=== PATIENT | male | born 1940 | race Caucasian/White ===

== ENCOUNTER 2023-12-10 06:10 | Day surgery (SDC) | payer MEDICARE, OTHER, SELFPAY ==
[2023-12-10] MEDS: LACTATED RINGERS 1000 ML 1,000 ML 100 ML IV (06:30)
[2023-12-10 06:42] VITALS: BP 152/72; PULSE 60; RESP 16; TEMP 36.7; O2SAT 97
[2023-12-10 06:45] VITALS: BMI 30.4
[2023-12-10] MEDS: SODIUM CHLORIDE 0.9 % (FLUSH) 10 ML SYRINGE IVF (07:08)
--- NOTE | 2023-12-10 07:24 | W.PM.H&PU ---
History & Physical Update History & Physical Update H&P Reviewed and patient assessed: No changes noted
--- NOTE | 2023-12-10 07:27 | P.GSOP_ITS ---
Operative Note Date of procedure: 12/10/23 Pre-op diagnosis: 1. Symptomatic right inguinal hernia. Post-op diagnosis: 1. Small direct right inguinal hernia and moderately sized indirect inguinal hernia. Type of Procedure: 1. Open right inguinal hernia repair with mesh. Indications: 83-year-old male was seen in clinic for evaluation of a right inguinal hernia. Patient noticed right groin pain while biking. Patient is very active. The pain initially was intermittent but then became constant when he was seen in clinic. He denies any nausea or vomiting. He was seen in urgent care for evaluation of this pain and had a CT scan in September of 2023. 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 On clinical exam with the patient standing up there was a right inguinal bulge noted. This was reducible. Given patient's clinical history and his physical exam, an open right inguinal hernia repair was recommended. The procedure was discussed in detail. The risks associated procedure including infection, bleeding, injury to into preperitoneal organs, nerve pain, and other complications were all discussed with the patient, he agreed to proceed. Procedure Description: After discussing the risks and benefits of the procedure, the patient signed informed consent.? The operative site was marked and the patient was brought to the operating room and placed on the operating table in supine position.? Care was taken to pad the patient's pressure points.?? The patient was then sedated by anesthesia.?? The operative site was then prepped and draped in the usual sterile fashion.? A time-out was then performed. Surgical site was prepped and draped in sterile fashion. Site of the incision was marked with a marking pen and local anesthetic was injected. An oblique incision was made just above and medial to the right inguinal ligament. Sub cutaneous tissue was dissected to external obliques. Superficial subcutaneous vascular branches were clamped, divided and tied with 3-0 Vicryl ties. Small incision was made through the external oblique aponeurosis with scalpel. I then used Metzenbaum scissors to dissect under external obliques and extend my incision. Mosquito clamps were placed on the edges of external oblique exposing the inguinal floor. The right Ilioinguinal nerve was identified and was going through the plain of dissection. The nerve was divided proximally and distally and a 3 cm segment of it was excised. This was not sent to pathology. I then identified the spermatic cord and the hernia sac. I bluntly dissected subcutaneous tissues in order to place [place] drain around the cord structures. Cremasteric fibers were peeled off and dissected off the hernia sac and cord structures. The indirect hernia sac was identified. The hernia sac was from the spermatic cord bluntly and with cautery. There was also evidence of small direct hernia with preperitoneal fat protruding through the hernia opening. The indirect hernia sac was mobilized off the spermatic cord with cautery and bluntly. The indirect hernia sac was incised and examined from the inside. No intraabdominal organs were incarcerated in the hernia sac. A stitch using 2-0 Vicryl was placed near the base of the hernia sac through the sac and the hernia sac tied off. Hernia sac was then excised and not sent to pathology. This was then pushed into preperitoneal space through the internal ring. Surgical field was examined for bleeding and hemostasis was achieved with cautery and Vicryl ties. A Bard mesh onlay was also used for hernia repair. The mesh onlay was sutured in place with interrupted 0-0 Neurolon sutures to the conjoint tendon medially and shelving edge laterally, pubic tubercle inferiorly. Simple interrupted sutures were placed using 0-0 Neurolon at the base of internal inguinal ring making it only large enough to fit a tip of one finger through. Spermatic cord was placed back into scrotum. [place] drain was removed. External oblique aponeurosis was closed with a running 3-0 Vicryl. Additional local anesthetic was injected into subcutaneous tissues. Solange's fascia and subcutaneous tissue was re-approximated with interrupted Vicryl stitches. Skin incision was closed with 4-0 Monocryl subcuticular stitch. Steri strips and sterile dressing were applied over incision. All counts were correct at the end of the case. Patient tolerated this procedure well and was transferred to PACU in stable condition. Sterile dressings were then applied. Findings: Small direct hernia and moderately sized indirect hernia with no intra-abdominal structures incarcerated in hernia sac. Repaired with mesh. Anesthesia: MAC and local Surgeon: Caridad Feldman MD Estimated blood loss (mL): 5 Condition: stable Disposition: same day
[2023-12-10] MEDS: CEFAZOLIN 2 GM INJ IVP (07:37)
[2023-12-10] MEDS: BUPIVACAINE 0.25% 30 ML INJECTION (07:50)
[2023-12-10 08:56] VITALS: BP 120/65; PULSE 60; RESP 16; TEMP 36.3; O2SAT 97
--- NOTE | 2023-12-10 08:58 | P.ANES_ITS ---
Anesthesia Charges Start Date/Time Anesthesia Start Date: 12/10/23 Anesthesia Start Time: 07:27 Stop Date/Time Anesthesia Stop Date: 12/10/23 Anesthesia Stop Time: 08:56 Summary Extremes of Age - Over 70 or under 1: [employer]
[2023-12-10 09:00] VITALS: BP 133/70; PULSE 60; RESP 16; O2SAT 97
[2023-12-10 09:15] VITALS: BP 143/74; PULSE 60; RESP 16; O2SAT 97
[2023-12-10 09:30] VITALS: BP 143/77; PULSE 60; RESP 16; O2SAT 97
[2023-12-10 09:45] VITALS: BP 144/78; PULSE 60; RESP 16; O2SAT 97
--- NOTE | 2023-12-10 11:59 | W.ANESCHARGE ---
Anesthesia Charges Start Date/Time Anesthesia Start Date: 12/10/23 Anesthesia Start Time: 07:27 Stop Date/Time Anesthesia Stop Date: 12/10/23 Anesthesia Stop Time: 08:56 Summary Extremes of Age - Over 70 or under 1: MDA
== END 2023-12-10 10:00 | disposition home or self-care (01) ==
PROVIDERS: PCP Family Medicine; Visit Provider Surgery
PROC: (CPT 49505; principal; 2023-12-10 07:30)
DX: K40.90 Unilateral inguinal hernia, without obstruction or gangrene, not specified as recurrent (principal)
CPT/HCPCS: 49505; 00830; 99100; C1781; J0665; J0690; J1100; J2405; J2704; J3010; J7120

== ENCOUNTER 2024-06-03 16:27 | Emergency (ER) | payer MEDICARE, OTHER, SELFPAY ==
[2024-06-03] VITALS (27 sets, daily range): BP systolic 120–180; BP diastolic 55–87; PULSE 60–64; RESP 4–23; TEMP 36.3–36.8; O2SAT 98–99; BMI 29.3
--- OUTSIDE RECORDS SUMMARY | 2024-06-03 17:09 | XMS_ITS | Clinical Summary ---
Author Organization [facility] Address [address] [place] [address] Care Team Providers Care Production Editor Name Role Phone Eddie Navarro MD Primary Care Provider [phone] Elder Delgado MD Unavailable Bob Birmingham MD Unavailable [phone] Allergies Active Allergy Reactions Criticality Noted Date Comments Cat Dander Other - Describe In Comment Field 01/07/2019 Runny nose, sneezing, and itchy Dog Dander Other - Describe In Comment Field 01/07/2019 Sneezing, runny nose Homeopathic Products Runny Nose 11/22/2005 Medications VITAMIN D 1,000 UNIT CAP 1 capsule daily 0 12/10/19 09 Active acetaminophen SR (TYLENOL ARTHRITIS PAIN) 650 mg Extended-Release tablet Take 2 tablets by mouth every 12 hours. Max acetaminophen dose: 4000mg in 24 hrs. 0 11/21/19 14 Active DENTA 5000 PLUS 1.1 % crea 12/15/19 15 Active lutein-zeaxanthin (OCUVITE LUTEIN 25) 25-5 mg cap Take by mouth. 0 01/12/20 18 Active chlorhexidine (PERIDEX) 0.12 % solution USE DIRECTED 2 09/28/19 19 Active Tsqul-7-QNQ-EPA-F ale Oil 1,000 mg (120 mg-180 mg) cap Take 1 capsule by mouth. 0 08/30/19 20 Active psyllium powd Mix 1 tsp in liquid then take by mouth once daily if needed for Constipation. 283 g 11 05/05/19 23 Active faricimab-svoa (VABYSMO) 6 mg/0.05 mL solution Inject 6 mg intravitreal. Every 9 weeks Active CPAPIndications:O bstructive sleep apnea CPAP machine for home use at pressure , full face mask x1/3month with a full face cushion x1/mo Heat humidifier x 1/5 year, Humidifier chamber x 1/6mo, standard tubing x 1/3mo, Headgear x 1/6mo, Chin strap x 1/6 months, Filters: Disposable x 2pk/1mo & Reusable x 1pk/6mo 1 Each 11 12/27/19 24 Active melatonin 1 mg tablet Take 1 mg by mouth at bedtime. Takes 8 mg every evening Active nitroglycerin (NITROSTAT) 0.4 mg sublingual tabletIndications :CAD in [place] artery Place 1 Tablet (0.4 mg) under the tongue every 5 minutes if needed for Chest Pain. If patient requesting greater than 25 doses in 30 days, to provider to authorize 25 Tablet 05/09/19 25 Active metoprolol succinate (TOPROL XL) 25 mg Sustained-Release tabletIndications :Essential hypertension Take 1 Tablet (25 mg) by mouth once daily. 90 Tablet 05/09/19 25 Active lisinopriL (PRINIVIL; ZESTRIL) 2.5 mg tabletIndications :Inferior FL (HC) Take 0.5 Tablets (1.25 mg) by mouth once daily. 45 Tablet 05/09/19 25 Active levothyroxine (SYNTHROID) 50 mcg tabletIndications :Acquired hypothyroidism Take 1 Tablet (50 mcg) by mouth once daily. 90 Tablet 05/09/19 25 Active clopidogreL (PLAVIX) 75 mg tabletIndications :ASCVD (arteriosclerotic cardiovascular disease) Take 1 Tablet (75 mg) by mouth once daily. 90 Tablet 05/09/19 25 Active atorvastatin (LIPITOR) 40 mg tabletIndications :Mixed hyperlipidemia Take 1 Tablet (40 mg) by mouth once daily. 90 Tablet 05/09/19 25 Active albuterol HFA (PRO-AIR; VENTOLIN; PROVENTIL) 90 mcg/actuation inhalerIndication s:Mild intermittent asthma without complication Inhale 2 Puffs by mouth every 4 hours if needed for Shortness Of Breath. 8.5 g 2 05/09/19 25 Active diclofenac topical (VOLTAREN) 1 % gelIndications:Ac [place] midline low back pain with right-sided sciatica Apply 4 grams to your knee four times daily as needed for back pain. 05/09/19 25 Active cyanocobalamin (Vitamin B-12) 1,000 mcg tabletIndications :Vitamin B12 deficiency Take 0.5 Tablets (500 mcg) by mouth once daily. 05/09/19 25 Active diclofenac topical (VOLTAREN) 1 % gelIndications:Ac [place] midline low back pain with right-sided sciatica Apply 4 grams to your back four times daily as needed for back pain. 300 g 2 08/04/19 20 025 Discontin ued(*Medi cation adjustmen t) nitroglycerin (NITROSTAT) 0.4 mg sublingual tabletIndications :CAD in [place] artery Place 1 Tablet (0.4 mg) under the tongue every 5 minutes if needed for Chest Pain. If patient requesting greater than 25 doses in 30 days, to provider to authorize 25 Tablet 6 05/08/19 24 025 Discontin ued(Reord er (E-cancel not sent)) lisinopriL (PRINIVIL; ZESTRIL) 2.5 mg tabletIndications :Inferior FL (HC) Take 0.5 Tablets (1.25 mg) by mouth once daily. 45 Tablet 3 05/08/19 24 025 Discontin ued(Reord er (E-cancel not sent)) cyanocobalamin (Vitamin B-12) 1,000 mcg tabletIndications :Vitamin B12 deficiency Take 1 Tablet (1,000 mcg) by mouth once daily. 90 Tablet 3 05/08/19 24 025 Discontin ued(*Medi cation adjustmen t) metoprolol succinate (TOPROL XL) 25 mg Sustained-Release tabletIndications :Essential hypertension Take 1 Tablet (25 mg) by mouth once daily. 90 Tablet 3 05/08/19 24 025 Discontin ued(Reord er (E-cancel not sent)) atorvastatin (LIPITOR) 40 mg tabletIndications :Mixed hyperlipidemia Take 1 Tablet (40 mg) by mouth once daily. 90 Tablet 3 05/08/19 24 025 Discontin ued(Reord er (E-cancel not sent)) levothyroxine (SYNTHROID) 50 mcg tabletIndications :Acquired hypothyroidism Take 1 Tablet (50 mcg) by mouth once daily. 90 Tablet 3 05/08/19 24 025 Discontin ued(Reord er (E-cancel not sent)) clopidogreL (PLAVIX) 75 mg tabletIndications :ASCVD (arteriosclerotic cardiovascular disease) Take 1 Tablet (75 mg) by mouth once daily. 90 Tablet 3 05/08/19 24 025 Discontin ued(Reord er (E-cancel not sent)) albuterol HFA (PRO-AIR; VENTOLIN; PROVENTIL) 90 mcg/actuation inhalerIndication s:Mild intermittent asthma without complication INHALE 2 PUFFS BY MOUTH EVERY 4 HOURS IF NEEDED. 8.5 g 2 11/28/19 24 025 Discontin ued(Reord er (E-cancel not sent)) Active Problems Problem Noted Date Diagnosed Date Pacemaker 11/13/2023 Overview (11/13/2023): Indication for Pacemaker: Sinus Node Dysfunction Primary MD: Mio Headley MD Primary Market Research Worker: Radha Coates MD Implanting MD: Christiano Julien MD DEVICE DATA Airplane And Engine Inspector OrderAhead: Model Accolade EL [id number] Implant Date 12/08/2014 LEAD DATA Atrial Lead: Airplane And Engine Inspector Guidant: Model [id number] Implant Date 12/08/2014 RV Lead: Airplane And Engine Inspector Guidant: Model [id number] Implant Date 12/08/2014 MV software loaded 09/03/2018 Advisory: Advisory for hydrogen-induced premature battery depletion related to a latent release of hydrogen within the device causing the low-voltage capacitor to become compromised over time resulting in accelerated battery depletion Skin cancer 10/16/2022 Overview (10/26/2022): 10/10/2022: Nasal Supratip, Basal cell carcinoma, Mohs done 10/26/[address] Bansal Varicose veins of bilateral lower extremities with other complications 01/06/2020 Essential hypertension 03/22/2018 CAD in [place] artery 06/14/2016 Overview (06/14/2016): He has 2 stents in his left anterior descending. One stent in his first marginal. One stent in his RCA placed in 2014 at the time of an FL. He also had a pacemaker placed then. Osteoarthritis of multiple joints 11/01/2015 MCI (mild cognitive impairment) 04/15/2015 GERD (gastroesophageal reflux disease) 5 Hypothyroidism 12/09/2014 Hyperlipidemia 12/09/2014 Bradycardia 12/09/2014 Chronotropic incompetence 12/09/2014 Overview (12/09/2014): -s/p Permanent Pacemaker Placement 12/08/2014 Asthma, mild intermittent 08/11/2014 Gynecomastia, male 05/28/2014 Overview (05/28/2014): DIAGNOSTIC LEFT AND COMPARISON RIGHT DIGITAL MAMMOGRAM, 05/26/2014 CLINICAL HISTORY: The patient is complaining of pain near the LEFT nipple. CC and MLO projections of the LEFT breast were obtained as well as an MLO view of the RIGHT breast. FINDINGS: The breasts are predominantly fatty density. There is mammographic evidence of BILATERAL gynecomastia which asymmetric, greater on the LEFT than the RIGHT. No masses or suspicious calcifications are seen. IMPRESSION: BILATERAL asymmetry gynecomastia, LEFT greater than RIGHT. NOTE: I discussed today's imaging findings with the patient who will follow-up with Dr. Headley. BI-RADS Category 2: Benign Rhinosinusitis 04/03/2013 WALTER 04/27/2012 AHI-10, positional 05/05/2012 Tremor 04/19/2012 Anemia, macrocytic 08/19/2010 Overview (05/10/2024): Macrocytic anemia - he saw Dr. Nguyen for this and she stated she does not need to see him anymore unless his Hemoglobin drops below 10. 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 05/02/2010 Asymptomatic varicose veins 04/07/2010 Overview (04/07/2010): Left > Right 04/07/2010 Mixed hyperlipidemia 12/09/2009 Macular degeneration (senile) of retina, unspeci fied 01/28/2009 Overview (01/28/2009): Sees Retinal Specialist in [place]. Hypertrophy of prostate with urinary obstruction and other lower urinary tract symptoms (LUTS) 01/28/2009 Left knee pain 01/28/2009 Pain in joint, shoulder region 12/09/2008 Overview (12/09/2008): Right Shoulder Pain Resolved Problems Problem Noted Date Diagnosed Date Resolved Date Coronary artery disease invo lving [place] coronary artery with unstable angina pectoris 12/09/2014 01/18/2015 Overview (12/09/2014): - Hx of stent to LAD - 12/06/14 100% mRCA, 100% 1st RPL, patent LAD and OM1 stents. s/p thrombectomy and MARIELA to mRCA Inferior FL 12/06/2014 05/17/2015 Syncope 03/22/2013 05/17/2015 Chest pain 03/22/2013 04/03/2013 Snoring 09/25/2011 04/03/2013 CAD (coronary artery disease) 09/25/2011 04/29/2018 Intention tremor 04/17/2011 04/13/2014 Routine general medical exam ination at a health care facility 04/05/2009 09/25/2011 Overview (04/17/2011): Colonoscopy: 08/21/2003; recheck 10 years. negative stress echocardiogram 03/2008; recheck every 3 yrs unless symptoms. 04/07/2010 Negative nuclear stress test 08/201004/17/2011 Advanced directives, counseling/discussion 01/28/2009 08/11/2014 Overview (01/28/2009): Scanned 01/28/2009 Other chest pain 11/02/2006 11/02/2006 Unspecified hypothyroidism 09/23/2006 1 05/10/2014 Coronary atherosclerosis of unspecified type of vessel, [place] or graft 08/09/2006 09/25/2011 Other chest pain 11/23/2005 11/02/2006 Unspecified asthma(493.90) 11/23/2005 0 08/11/2014 Esophageal reflux 11/23/2005 04/18/2016 Overview (04/07/2010): Intermittent:easily managed with Tums as needed. 04/07/2010 Mitral valve disorders 11/23/200511/20 Overview (11/23/2005): Mild MR ( per echo) Encounters Date Type Department Care Team Description 06/03/2024 Nurse Triage [facility] [address] [place] [address] Eddie Navarro MD Chest Pain; Difficulty Breathing 05/26/2024 Telephone [facility] [address] [place] [address] Brunilda Davalos RN, CCRN EP Procedure Scheduling 05/15/2024 10:00 AM FELLMONGERY WORKER Office Visit [facility] [address] [place] [address] Laurel Díaz PA Follow Up (*Device Check 05/06*/discuss [employer] advisory //pt states he feels well with no new cardiac sx.) 05/15/2024 Travel 05/12/2024 Telephone [facility] [address] [place] [address] Eddie Navarro MD Procedure 05/09/2024 4:30 PM FELLMONGERY WORKER Ancillary Procedure [facility] [address] [place] [address] 05/09/2024 2:20 PM FELLMONGERY WORKER Office Visit [facility] [address] [place] [address] Eddie Navarro MD Medicare ANNUAL (subsequent) Visit (86 years) 05/09/2024 Travel 05/06/2024 Travel 04/07/2024 Telephone [facility] [address] [place] [phone] Keila Martinez, ANTOINE Appointment ([facility] Advisory ) from Last 3 Months Immunizations Immunization Administration Dates Next Due COVID-19 vaccine (Moderna 100mcg/0.5mL) PF, MDV 06/11/2020,05/14/2020 COVID-19 vaccine (Pfizer-Bio NTech 30mcg/0.3mL) 12YO+ BIVALENT PF, MDV 12/21/2021 Hepatitis A (Adult) 09/04/1997,04/08/1997 Hepatitis B (Adult) 09/04/1997,05/08/1997,1997 Inactivated Polio Vaccine 03/26/1997 Influenza A (H1N1), Inactivated 04/05/2009 Influenza A (H1N1), Inactiva tima (Age >=3 Years) 04/05/2009 Influenza Virus, Unspecified 01/23/2013 Influenza, High-dose Inactivated 01/11/2016,11/25 Influenza, High-dose Quadriv alent Inactivated 12/28/2022 Influenza, IIV3 (Age 6-35 mos) 12/23/2010,2009 Influenza, IIV3 (Age >=3 years) 01/01/20 14,12/31/2012,12/26/2011,12/23,12/09/2009,12/09/2008,02/19/2007 ,01/01/2006,02/09/2005,01/09/2004,11/2002 Influenza, Inactivated AIIV4 (Age 65+ Years) Preserv Free 12/21/2021,01/14/2021,01/06/2020 Influenza, Inactivated IIV3 (Age 65+ Years) Preserv Free 11/28/2023,01/07/2019,01/15/2018,12/26 Pneumococcal Poly,23-Valent (Pneumovax) 04/04/2003,01/24/1996 Pneumococcal conj 13-Valent (Prevnar 13) 04/22/2014 RSV, Recombinant ADJ Reconst ituted (Arexvy 120MCG/0.5mL) 12/05/2023 Td (Age >=7 Years) 09/23/2004,01/24/1996 Td, Preservative Free (age >= 7 Years) 5 Tdap 12/05/2023,11/20/2013 Yellow Fever 11/24/1997 Zoster (Shingrix-RZV, recombinant) 09/19/2021, Zoster (Zostavax-ZVL, live) 04/05/2009 Family History Medical History Relation Name Comments COPD Brother 1 Scott smoker Diabetes Brother 1 Scott Heart Disease Brother 1 Scott of CHF at 81 Tremor Brother 1 Scott Aneurysm Brother 2 Padmini of Aortic Aneurysm rupture at 65 Stroke Brother 3 Aamir Heart Disease Father Elder of CHF at 86 Cancer Maternal Grandfather in 60s of cancer Cancer Maternal Grandmother in 50s of cancer Anesthesia Problem No Family History Blood Disease No Family History Relation Name Status Comments Brother 1 Scott (Age 81) Brother 2 Padmini (Age 65) AAA Brother 3 Aamir Alive Father Elder (Age 86) of he art trouble Maternal Grandfather Maternal Grandmother Mother Charlotte (Age 73) Social History Tobacco Use Types Packs/Day Years Used Date Smoking Tobacco: Never Smokeless Tobacco: Never Tobacco Cessation:Counseling Given: Yes Alcohol Use Standard Drinks/Week Comments Yes 0 (1 standard drink = 0.6 oz pur e alcohol) up to one beer/month or less PHQ-2 Answer Date Recorded PHQ-2 TOTAL SCORE 0 05/09/2024 Social Connections Answer Date Recorded Do you often feel lonely or isolated from those around you? 0 10/16/2023 Alcohol Use Answer Date Recorded How often do you have a drink containing alcohol ? 1 05/09/2024 How many drinks containing a lcohol do you have on a typical day when you are drinking? 0 05/09/2024 How often do you have five or more drinks on one occasion? 0 05/09/2024 Financial Resource Strain Answer Date R ecorded Difficulty of Paying Living Expenses 3 10/16/2023 Difficulty of Paying Living Expenses Not on file 10/16/2023 Food Insecurity Answer Date Recorded Do you worry your food will run out before you are able to buy more? 1 10/16/2023 Transportation Needs Answer Date Record ed Does lack of transportation keep you from medica l appointments? 1 10/16/2023 Does lack of transportation keep you from work, meetings or getting things that you need? 1 10/16/2023 Housing Stability Answer Date Recorded What is your housing situation today? 1 10/16/2023 Utilities Answer Date Recorded Do you have trouble paying f or utilities (for example, heat, electricity, water, phone)? 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 on file Not on fi le Not on file Obstetrics History Last Filed Vital Signs Vital Sign Reading Time Taken Comments Blood Pressure 108/58 05/15/2024 9:55 AM FELLMONGERY WORKER Pulse 63 05/15/2024 9:55 AM FELLMONGERY WORKER Temperature 36.4 C (97.6 F) 05/09/2024 2:41 PM FELLMONGERY WORKER Respiratory Rate 14 11/29/2023 2:57 PM CDT Oxygen Saturation 99% 05/15/2024 9:55 AM FELLMONGERY WORKER Inhaled Oxygen Concentration - - Weight 92.1 kg (203 lb) 05/15/2024 9:55 AM FELLMONGERY WORKER Height 172.7 cm (5' 8) 05/15/2024 9:55 AM FELLMONGERY WORKER Body Mass Index 30.87 05/15/2024 9:55 AM FELLMONGERY WORKER Plan of Treatment Upcoming Encounters Date Type Department Care Team (Late st Contact Info) Description 06/11/2024 2:00 PM CDT Orders Only [facility] [address] [place] [address] Lab, [facility] 06/24/2024 11:00 AM CDT Appointment [facility] [address] [facility] [address] [place] [address] Elder Hopper MD [address] [facility] [address] [place] [address] 09/03/2024 Cardiac Device Check [facility] [phone] Health Maintenance Due Date Last Done Comments COVID-19 vaccine series ( season) 2024 12/31/2023, 12/28/2022, 12/21/2021, Additional history exists Medicare Wellness for age 65+ 05/10/2025, 05/08/2023, 05/05/2022, Additional history exists BMI (ht and wt on same day) for age 18+ 05/15/2025 05/15/2024, 05/09/2024, 12/27/2023, Additional history exists Depression screening for age 12+ 05/15/2025 05/15/2024, 05/12/2024, 05/09/2024, Additional history exists Tetanus booster 12/04/2033 12/05/2023, 10/25, 09/30/2004, Additional history exists Pneumococcal series for age 50+ Completed 04/22/2014, 04/04/2003, 01/24/1996 Zoster (shingles) series for age 50+ Completed 09/19/2021, 05/20/2021, 04/05/2009 Influenza Vaccine Completed 11/28/2023, , 01/14/2021, Additional history exists RSV vaccine for adults or Completed 12/05/2023 Tdap Completed 12/05/2023, 11/20/2013 Medical Devices Implanted Type Area Airplane And Engine Inspector Device Identifier Shelf Expiration Date Model / Serial / Lot Standard Pacemaker-11/24 Implanted: by Christiano Julien MD (Quantity not on file) Standard Pacemaker [employer] [id number] / [id number] / Procedures Procedure Name Priority Date/Time Associated Diagnosis Comments EKG 12 LEAD Routine 05/15/2024 9:52 AM FELLMONGERY WORKER Fitting or adjustment of cardiac pacemaker Pacemaker XR HIP 1 VIEW W PELVIS RIGHT Routine 05/09/2024 4:33 PM FELLMONGERY WORKER Hip pain, right LIPID PANEL W REFLEX MEASURED LDL Routine 05/09/2024 4:16 PM FELLMONGERY WORKER Inferior FL (HC) Mixed hyperlipidemia BASIC METABOLIC PANEL Routine 05/09/2024 4:16 PM FELLMONGERY WORKER Essential hypertension TSH WITH REFLEX Routine 05/09/2024 4:16 PM FELLMONGERY WORKER Acquired hypothyroidism CBC WITH AUTO DIFFERENTIAL Routine 05/09/2024 4:16 PM FELLMONGERY WORKER Macrocytic anemia HEMOGLOBIN A1C Routine 05/09/2024 4:16 PM FELLMONGERY WORKER Hyperglycemia from Last 3 Months Results * EKG 12 LEAD (05/15/2024 9:52 AM FELLMONGERY WORKER) Interpretation Atrial-paced rhythm with prolonged AV conduction with occasional Premature ventricular complexes Incomplete right bundle branch block Abnormal ECG When compared with ECG of 08-Dec-2014 17:30, Premature ventricular complexes are now Present Incomplete right bundle branch block has replaced Right bundle branch block Ventricular Rate 63 BPM Atrial Rate 63 BPM P-R Interval 254 ms QRS Duration 116 ms QT 406 ms QTc 415 ms P [place] 66 degrees R [place] 11 degrees T [place] 45 degrees 05/15/2024 9:52 AM FELLMONGERY WORKER 05/15/2024 4:53 PM FELLMONGERY WORKER Laurel JUAREZ EKG ORD Leti l Result * XR HIP 1 VIEW W PELVIS RIGHT (05/09/2024 4:33 PM FELLMONGERY WORKER) Anatomical Region Laterality Modality HIPS, HIPR, Pelvis Computed Radi ography 05/12/2024 8:03 AM FELLMONGERY WORKER Narrative 05/12/2024 8:03 AM FELLMONGERY WORKER For Patients: As a result of the Cures Act, medical imaging exams and procedure reports are released immediately into your electronic medical record. You may view this report before your referring provider. If you have questions, please contact your health care provider. Indication: Hip pain. Technique: Pelvis and right hip 1 view. Comparison: CT abdomen and pelvis September 2023 Findings: Moderate degenerative arthrosis of left greater than right hip. No acute fracture or dislocation. Multilevel advanced degenerative arthrosis of the included lumbar spine. Impression: Moderate degenerative arthrosis of right hip. No acute osseous findings. Dictated by Milagros Heath MD @ 05/12/2024 8:03:28 AM (Electronically Signed) Procedure Note Milagros Heath MD - 05/12/2024 For Patients: As a result of the Cures Act, medical imagingexams and procedure reports are released immediately into your electronicmedical record. You may view this report before your referring provider.If you have questions, please contact your health care provider. Indication: Hip pain. Technique: Pelvis and right hip 1 view. Comparison: CT abdomen and pelvis September 2023 Findings: Moderate degenerative arthrosis of left greater than right hip. No acutefracture or dislocation. Multilevel advanced degenerative arthrosis of theincluded lumbar spine. Impression: Moderate degenerative arthrosis of right hip. No acute osseous findings. Dictated by Milagros Heath MD @ 05/12/2024 8:03:28 AM (Electronically Signed) Eddie Navarro MD GENERAL IMAGING Final Resu lt * (ABNORMAL) HEMOGLOBIN A1C (05/09/2024 4:16 PM FELLMONGERY WORKER) HEMOGLOBIN A1C 5.7(H) <5.7 % of total Hgb [facility] Comment: For someone without known diabetes, a hemoglobin A1c value between 5.7% and 6.4% is consistent with prediabetes and should be confirmed with a follow-up test. For someone with known diabetes, a value <7% indicates that their diabetes is well controlled. A1c targets should be individualized based on duration of diabetes, age, comorbid conditions, and other considerations. This assay result is consistent with an increased risk of diabetes. Currently, no consensus exists regarding use of hemoglobin A1c for diagnosis of diabetes for children. Blood BLOOD SPECIMEN / Unknown 05/09/2024 4:16 PM FELLMONGERY WORKER 05/09/2024 4:16 PM FELLMONGERY WORKER Narrative [facility] - 05/10/2024 5:09 AM FELLMONGERY WORKER FASTING:NO FASTING: NO Eddie Navarro MD CHEMISTRY Final Resu lt [facility] [address] [place] [address], [facility] [address] [place] [address] * TSH WITH REFLEX (05/09/2024 4:16 PM FELLMONGERY WORKER) TSH W/REFLEX TO FT4 2.10 0.40 - 4.50 mIU/L [facility] Blood BLOOD SPECIMEN / Unknown 05/09/2024 4:16 PM FELLMONGERY WORKER 05/09/2024 4:16 PM FELLMONGERY WORKER Narrative [facility] - 05/10/2024 4:31 AM FELLMONGERY WORKER FASTING:NO FASTING: NO Eddie Navarro MD CHEMISTRY Final Resu lt [facility] [address] [place] [address], [facility] [address] [place] [address] * (ABNORMAL) LIPID PANEL W REFLEX MEASURED LDL (05/09/2024 4:16 PM FELLMONGERY WORKER) Pathologist [facility] CHOLESTEROL, TOTAL 81 <200 mg/dL [facility] HDL CHOLESTEROL 31(L) > OR = 40 mg/dL [facility] TRIGLYCERIDES 76 <150 mg/dL [facility] LDL-CHOLESTEROL 34 mg/dL (calc) [facility] Comment: Reference range: <100 Desirable range <100 mg/dL for primary prevention; <70 mg/dL for patients with CHD or diabetic patients with > or = 2 CHD risk factors. LDL-C is now calculated using the Khanh-David calculation, which is a validated novel method providing better accuracy than the Friedewald equation in the estimation of LDL-C. Khanh CASTRO et al. CINTHIA. 2013;310(19): 7607-2992 (http://education.PurePhoto.Dead Inventory Management System/faq/FZC598) CHOL/HDLC RATIO 2.6 <5.0 (calc) [facility] NON HDL CHOLESTEROL 50 <130 mg/dL (calc) [facility] Comment: For patients with diabetes plus 1 major ASCVD risk factor, treating to a non-HDL-C goal of <100 mg/dL (LDL-C of <70 mg/dL) is considered a therapeutic option. Blood BLOOD SPECIMEN / Unknown 05/09/2024 4:16 PM FELLMONGERY WORKER 05/09/2024 4:16 PM FELLMONGERY WORKER Narrative [facility] - 05/10/2024 6:16 AM FELLMONGERY WORKER FASTING:NO FASTING: NO Eddie Navarro MD CHEMISTRY Final Resu lt [facility] [address] [place] [address], [facility] [address] [place] [address] * (ABNORMAL) CBC AND DIFFERENTIAL (05/09/2024 4:16 PM FELLMONGERY WORKER) Pathologist [facility] WHITE BLOOD CELL COUNT 6.7 3.8 - 10.8 Thousand/u L [facility] RED BLOOD CELL COUNT 3.65(L) 4.20 - 5.80 Million/uL [facility] HEMOGLOBIN 12.4(L) 13.2 - 17.1 g/dL [facility] HEMATOCRIT 37.9(L) 38.5 - 50.0 % [facility] MCV 103.8(H) 80.0 - 100.0 fL [facility] MCH 34.0(H) 27.0 - 33.0 pg [facility] MCHC 32.7 32.0 - 36.0 g/dL [facility] Comment: For adults, a slight decrease in the calculated MCHC value (in the range of 30 to 32 g/dL) is most likely not clinically significant; however, it should be interpreted with caution in correlation with other red cell parameters and the patient's clinical condition. RDW 12.4 11.0 - 15.0 % [facility] PLATELET COUNT 206 140 - 400 Thousand/u L [facility] MPV 10.7 7.5 - 12.5 fL [facility] ABSOLUTE NEUTROPHILS 3,035 1,500 - 7,800 cells/uL [facility] ABSOLUTE LYMPHOCYTES 2,673 850 - 3,900 cells/uL [facility] ABSOLUTE MONOCYTES 771 200 - 950 cells/uL [facility] ABSOLUTE EOSINOPHILS 201 15 - 500 cells/uL [facility] ABSOLUTE BASOPHILS 20 0 - 200 cells/uL [facility] NEUTROPHILS 45.3 % [facility] LYMPHOCYTES 39.9 % [facility] MONOCYTES 11.5 % [facility] EOSINOPHILS 3.0 % [facility] BASOPHILS 0.3 % [facility] Blood BLOOD SPECIMEN / Unknown 05/09/2024 4:16 PM FELLMONGERY WORKER 05/09/2024 4:16 PM FELLMONGERY WORKER Narrative [facility] - 05/10/2024 4:13 AM FELLMONGERY WORKER FASTING:NO FASTING: NO us Eddie Navarro MD HEMATOLOGY Final Resu lt [facility] [address] [place] [address], [facility] [address] [place] [address] * BASIC METABOLIC PANEL (05/09/2024 4:16 PM FELLMONGERY WORKER) GLUCOSE 95 65 - 139 mg/dL [facility] Comment: Non-fasting reference interval UREA NITROGEN (BUN) 23 7 - 25 mg/dL [facility] CREATININE 1.03 0.70 - 1.22 mg/dL [facility] EGFR 71 > OR = 60 mL/min/1. 73m2 [facility] BUN/CREATININE RATIO SEE NOTE: 6 - 22 (calc) [facility] Comment: Not Reported: BUN and Creatinine are within reference range. SODIUM 136 135 - 146 mmol/L [facility] POTASSIUM 5.1 3.5 - 5.3 mmol/L [facility] CHLORIDE 98 98 - 110 mmol/L [facility] CARBON DIOXIDE 28 20 - 32 mmol/L [facility] ELECTROLYTE BALANCE 10 7 - 17 mmol/L (calc) [facility] CALCIUM 8.9 8.6 - 10.3 mg/dL [facility] Blood BLOOD SPECIMEN / Unknown 05/09/2024 4:16 PM FELLMONGERY WORKER 05/09/2024 4:16 PM FELLMONGERY WORKER Narrative [facility] - 05/10/2024 6:16 AM FELLMONGERY WORKER FASTING:NO FASTING: NO us Eddie Navarro MD CHEMISTRY Final Resu lt [facility] [address] [place] [address], [facility] [address] [place] [address] from Last 3 Months Insurance MEDICARE PART B HB ONLY [facility] MEDICARE PART B HB ONLY MEDICARE PART A HB ONLY MEDICARE PB ONLY [id number] [id number] Advance Directives Documents on File Type Date Recorded Patient Service Officer Expl anation Healthcare Directive 06/17/2005 [facility], [facility], 06/17/05 * Full Code (Latest Code Status on File) Date Activated Date Inactivated Comments 12/06/2014 2:51 PM 12/09/2014 3:03 PM * Full Code Date Activated Date Inactivated Comments 03/27/2013 7:06 AM 03/27/2013 2:58 PM * Full Code Date Activated Date Inactivated Comments 03/21/2013 10:46 PM 03/22/2013 3:06 PM * Full Code Date Activated Date Inactivated Comments 11/23/2005 9:06 AM 11/25/2005 3:25 PM Care Teams Production Editor Relationship Specialty Start Date End Date Eddie Navarro MD [address] [place] [address] PCP - General Family Practice 04/17/17 Elder Delgado MD [address] [place] [address] [place] [address] Surgery - Ophthalmology 05/05/22 Bob Birmingham MD [address] [place] [address] Cardiovascular Disease 05/05/22 Joseph Jones Ophthalmology 05/05/22
--- NOTE | 2024-06-03 17:10 | ED_ITS ---
HPI - General Adult General Date Seen: 06/03/24 Chief complaint: Chest Pain Stated complaint: Shortness of breath on stairs Time Seen by Provider: 06/03/24 16:37 History of Present Illness HPI narrative: Patient is an 84-year-old male with past medical history of multiple prior stents, most recently in 2014 or 16 at which time he says he had a heart attack and was taking care of at [facility]. He has been followed by Cardiology. He has a pacemaker secondary it sounds like to bradycardia after this most recent NC. Apparently in November he saw cardiology for a virtual visit as he was planning to have hernia surgery, everything seemed good at that point. In March, there was apparently a recall on his pacemaker, so he was seen at that time by cardiology and they recommended changing the battery which is scheduled to happen at the beginning of June. Over the past couple of weeks, he has had new shortness of breath with exertion associated with chest discomfort which he at times says has been severe. He tells me about 3 specific episodes, the 1st was when he was at a basketball game at [facility], he says he climb 3 flights of stairs and then became extremely lightheaded, short of breath and had chest discomfort. He says he had to rest and then have some [address]. Symptoms resolved. He then had another episode when he was walking up a hill when he was out fishing, and then had a 3rd episode again climbing 2 flights of stairs. This most recent episode was earlier today. He thought about coming in at this time but then decided to rest for a while at home and symptoms resolved. He called the clinic and was advised to come to the ER. He does note that also in that time frame he has been walking on flat ground without difficulty, and he also has used an exercise bike without difficulty. He denies other symptoms such as fever, cough, abdominal pain, vomiting, diarrhea, black or bloody stools, unusual swelling in his legs. He does have some chronic edema in his legs for which he wears compression stockings. Medications reviewed, he is on Plavix, does not take aspirin. No other anticoagulation. He does not smoke or drink. Here with his . Related Data Home Medications ?Medication ?Instructions ?Recorded ?Confirmed acetaminophen 650 mg 650 mg PO Q12H PRN 12/07/23 06/03/24 tablet,extended release (Tylenol Arthritis Pain) albuterol sulfate 90 mcg/actuation 2 inh inhalation Q4H PRN 12/07/23 06/03/24 aerosol inhaler atorvastatin 40 mg tablet 40 mg PO DAILY 12/07/23 06/03/24 cholecalciferol (vitamin D3) 25 1,000 unit PO DAILY 12/07/23 06/03/24 mcg (1,000 unit) capsule cyanocobalamin (vitamin B-12) 1,000 mcg PO DAILY 12/07/23 06/03/24 1,000 mcg capsule diclofenac sodium 1 % topical gel 4 g topical QID 12/07/23 06/03/24 faricimab-svoa 6 mg/0.05 mL 6 mg intravitreal Q9W 12/07/23 06/03/24 intravitreal solution (Vabysmo) lisinopril 2.5 mg tablet 1.25 mg PO DAILY 12/07/23 06/03/24 lutein 25 mg-zeaxanthin 5 mg 1 cap PO 12/07/23 capsule metoprolol succinate 25 mg 25 mg PO DAILY 12/07/23 06/03/24 tablet,extended release 24 hr (Toprol XL) nitroglycerin 0.4 mg sublingual 0.4 mg sublingual Q5M 12/07/23 06/03/24 tablet (Nitrostat) omega 3-dha 120 mg-epa 180 mg-fish 1 cap PO DAILY 12/07/23 06/03/24 oil 600 mg capsule clopidogrel 75 mg tablet (Plavix) 75 mg PO DAILY 12/10/23 06/03/24 levothyroxine 50 mcg tablet 50 mcg PO DAILY 06/03/24 06/03/24 Allergies Allergy/AdvReac Type Severity Reaction Status Date / Time No Known Drug Allergies Allergy Verified 06/03/24 16:37 Review of Systems Status of ROS: Reports: 10 or more systems reviewed and unremarkable except as noted in History and below [facility] Medical History Pacemaker ?Z95.0 - Presence of cardiac pacemaker (ICD-10) Skin cancer ?C44.90 - Unspecified malignant neoplasm of skin, unspecified (ICD-10) Essential hypertension ?I10 - Essential (primary) hypertension (ICD-10) CAD (coronary artery disease) ?I25.10 - Atherosclerotic heart disease of [place] coronary artery without angina pectoris (ICD-10) Osteoarthritis ?M19.90 - Unspecified osteoarthritis, unspecified site (ICD-10) MCI (mild cognitive impairment) ?G31.84 - Mild cognitive impairment of uncertain or unknown etiology (ICD-10) Chronotropic incompetence ?I45.89 - Other specified conduction disorders (ICD-10) Bradycardia ?R00.1 - Bradycardia, unspecified (ICD-10) Hyperlipemia ?E78.5 - Hyperlipidemia, unspecified (ICD-10) Hypothyroidism ?E03.9 - Hypothyroidism, unspecified (ICD-10) Asthenia ?R53.1 - Weakness (ICD-10) Gynecomastia ?N62 - Hypertrophy of breast (ICD-10) Rhinosinusitis ?J32.9 - Chronic sinusitis, unspecified (ICD-10) WALTER (obstructive sleep apnea) ?G47.33 - Obstructive sleep apnea (adult) (pediatric) (ICD-10) Tremor ?R25.1 - Tremor, unspecified (ICD-10) Anemia ?D64.9 - Anemia, unspecified (ICD-10) History of TMJ disorder ?Z87.39 - Personal history of other diseases of the musculoskeletal system and connective tissue (ICD-10) Asymptomatic varicose veins ?I83.90 - Asymptomatic varicose veins of unspecified lower extremity (ICD-10) Mixed hyperlipidemia ?E78.2 - Mixed hyperlipidemia (ICD-10) Left knee pain ?M25.562 - Pain in left knee (ICD-10) Hypertrophy of prostate with urinary obstruction ?N40.1 - Benign prostatic hyperplasia with lower urinary tract symptoms (ICD- 10) ?N13.8 - Other obstructive and reflux uropathy (ICD-10) Pain in joint, shoulder region ?M25.519 - Pain in unspecified shoulder (ICD-10) Macular degeneration (senile) of retina ?H35.30 - Unspecified macular degeneration (ICD-10) GERD (gastroesophageal reflux disease) ?K21.9 - Gastro-esophageal reflux disease without esophagitis (ICD-10) Surgical History S/P tonsillectomy and adenoidectomy ?Z90.89 - Acquired absence of other organs (ICD-10) H/O cataract removal with insertion of prosthetic lens ?Z98.49 - Cataract extraction status, unspecified eye (ICD-10) ?Z96.1 - Presence of intraocular lens (ICD-10) History of open reduction and internal fixation (ORIF) procedure ?Z98.890 - Other specified postprocedural states (ICD-10) Social History Smoking Status: Never smoker Do you use any of these nicotine containing products: None How often do you have a drink containing alcohol: monthly or less How many standard drinks containing alcohol do you have on a typical day: 1 or 2 How often do you have six or more drinks on one occasion: Never AUDIT-C Alcohol total score: 1 Non-prescribed substance use: denies use Caffeine: No Exam Narrative: Exam Narrative: Vital signs reviewed In general, alert, nontoxic Elderly male. Looks comfortable, breathing easily. Head: Normocephalic, atraumatic. Eyes: Sclera clear. Pupils equal and reactive. ENT: Mucous membranes moist. Neck: Supple without adenopathy. Heart: Mildly bradycardic, Regular. No obvious murmur.. Lungs: Clear. No increased work of breathing, crackles or wheezes. Abdomen: Soft, nontender to palpation. Extremities: Compression stockings on bilateral lower extremities, some edema is noted left greater than right. No calf tenderness. Neurologic: Alert, conversant. Speech fluent, face symmetric. Moves all extremities equally. Skin: Warm, dry well perfused. Affect: Normal. Const: Vital Signs, click to edit/add: Vital Signs - 24 hr 06/03/24 16:30 06/03/24 16:57 06/03/24 17:38 Temperature 98.2 F Pulse Rate 61 Pulse Rate [Right Pulse Oximeter] 60 Respiratory Rate 18 12 Blood Pressure Blood Pressure [Ri ght Upper Arm] 154/66 H Pulse Oximetry 98 98 98 Oxygen Delivery Me thod Room Air 06/03/24 17:41 06/03/24 17:45 06/03/24 18:00 Temperature Pulse Rate Pulse Rate [Right Pulse Oximeter] Respiratory Rate 4 L 17 Blood Pressure 164/76 H Blood Pressure [Ri ght Upper Arm] Pulse Oximetry Oxygen Delivery Me thod 06/03/24 18:01 06/03/24 18:15 06/03/24 18:30 Temperature Pulse Rate Pulse Rate [Right Pulse Oximeter] Respiratory Rate 18 17 15 Blood Pressure 167/85 H Blood Pressure [Ri ght Upper Arm] [facility]xim[facility] 18:32 06/03/24 18:45 06/03/24 19:00 Temperature Pulse Rate Pulse Rate [Right Pulse Oximeter] Respiratory Rate 19 10 L 16 Blood Pressure 177/87 H Blood Pressure [Ri ght Upper Arm] Pulse Oximetry [facility] 06/03/24 19:02 06/03/24 19:15 06/03/24 19:30 Temperature Pulse Rate Pulse Rate [Right Pulse Oximeter] Respiratory Rate 6 L 23 14 Blood Pressure 180/85 H Blood Pressure [Ri ght Upper Arm] Pulse Oximetry Oxygen Delivery [facility] 06/03/24 19:32 06/03/24 19:45 06/03/24 20:00 Temperature Pulse Rate Pulse Rate [Right Pulse Oximeter] Respiratory Rate 15 12 21 Blood Pressure 150/73 H Blood Pressure [Ri ght Upper Arm] Pulse Oximetry Oxygen Delivery [facility] 06/03/24 20:02 06/03/24 20:15 06/03/24 20:30 Temperature Pulse Rate Pulse Rate [Right Pulse Oximeter] Respiratory Rate 19 9 L 23 Blood Pressure 158/76 H Blood Pressure [Ri ght Upper Arm] Pulse Oximetry Oxygen Delivery [facility] 06/03/24 20:32 06/03/24 20:45 06/03/24 21:31 Temperature 97.3 F L Pulse Rate Pulse Rate [Right Pulse Oximeter] 64 Respiratory Rate 14 8 L 18 Blood Pressure 155/72 H Blood Pressure [Ri ght Upper Arm] 162/82 H Pulse Oximetry 99 [facility] 06/03/24 22:02 06/03/24 23:02 06/03/24 23:32 Temperature Pulse Rate Pulse Rate [Right Pulse Oximeter] Respiratory Rate 10 L 14 16 Blood Pressure 126/55 L 120/57 L 121/56 L Blood Pressure [Ri ght Upper Arm] Pulse Oximetry [facility] 06/04/24 00:24 06/04/24 00:31 06/04/24 00:45 Temperature 97.6 F Pulse Rate 61 60 Pulse Rate [Right Pulse Oximeter] 60 Respiratory Rate 18 13 Blood Pressure 123/53 L Blood Pressure [Ri ght Upper Arm] 123/53 L Pulse Oximetry 98 99 91 Oxygen Delivery Me thod Room Air Course Course ED Course: On arrival, patient had an EKG. This shows a sinus rhythm, ventricular rate of 60. No acute ST segment abnormalities. Patient's presentation is certainly concerning for angina. Right now he is asymptomatic. Will assess with labs, c hest x-ray. other diagnostic considerations would include pacemaker failure, congestive heart failure, pulmonary embolism, pleural effusion, pneumonia, anemia or other metabolic derangement. Initial troponin was 0.03. Repeat troponin was stable at 0.03. Other labs reviewed and normal. Chest x-ray by my review showed no acute findings, negative per Radiology. I spoke with the on-call assessment nurse practitioner at [facility] about this patient. He agreed that transfer to a facility with cardiology would be most appropriate at this time. [facility] was closed but [facility] did have beds. I subsequently talked to the assessment nurse practitioner on-call at [facility], who accepted the patient, I spoke with the hospitalist at [facility] as well. We have an up to 8 hour bed delay but patient is accepted to the telemetry unit there. I have explained all this to the patient his , he is resting comfortably, no further complaints has not had any chest pain while here. Patient signed out at the end of my shift to [facility], will do 1 final troponin, he does have a bed assigned, but at this point we are waiting for transport. Vital Signs Vital signs: Initial Vital Signs Temperature 98.2 F 06/03/24 16:30 Temperature Source Temporal Artery Scan 06/03/24 16:30 Pulse Rate 60 06/03/24 16:30 Pulse Rhythm Regular 06/03/24 16:30 Pulse Strength 3+ Normal 06/03/24 16:30 Respiratory Rate 18 06/03/24 16:30 Blood Pressure 154/66 H 06/03/24 16:30 Blood Pressure Mean 95 06/03/24 16:30 Blood Pressure Position Sitting 06/03/24 16:30 Pulse Oximetry 98 06/03/24 16:30 Oxygen Delivery Method Room Air 06/03/24 16:30 Vital Signs Temperature 98.2 F 06/03/24 16:30 Pulse Rate 60 06/03/24 16:30 Respiratory Rate 18 06/03/24 16:30 Blood Pressure 154/66 H 06/03/24 16:30 Pulse Oximetry 98 06/03/24 16:30 Oxygen Delivery Method Room Air 06/03/24 16:30 Temperature 97.6 F 06/04/24 00:31 Pulse Rate 60 06/04/24 00:45 Respiratory Rate 13 06/04/24 00:45 Blood Pressure 123/53 L 06/04/24 00:31 Pulse Oximetry 91 06/04/24 00:45 Oxygen Delivery Method Room Air 06/04/24 00:31 Medical Decision Making Lab Data Lab results reviewed: Yes I reviewed the patient's lab results Labs: Lab Results 06/03/24 06/03/24 06/03/24 Range/Units 17:20 17:24 20:46 WBC 7.36 (4.50-11.00) K/uL RBC 3.47 L (4.30-5.90) m/uL Hgb 11.9 L (13.5-17.5) gm/dL Hct 36.5 L (37.0-53.0) % MCV 105 H (80-100) fL MCH 34 (26-34) pg MCHC 33 (32-36) gm/dL RDW Coeff of Edilia 13.4 (11.5-15.5) % Plt Count 198 (140-440) K/uL Neut % (Auto) 49.7 (42.0-72.0) % Lymph % (Auto) 36.8 (20-44) % Frontier % (Auto) 10.6 (0.0-11.0) % Eos % (Auto) 1.9 (0.0-7.0) % Baso % (Auto) 0.3 (0.0-3.0) % Neut # (Auto) 3.66 (1.7-7.0) K/uL Lymph # (Auto) 2.71 (0.90-2.90) K/uL Frontier # (Auto) 0.80 (0.00-0.90) K/UL Eos # (Auto) 0.14 (0.00-0.50) K/uL Baso # (Auto) 0.02 (0.00-0.30) K/uL Abs Immat Gran (auto) 0.05 (0.00-0.30) K/uL Imm/Tot Granulo (auto) 0.7 % Diff Slide Review Acceptable Review (Acceptable) D-Dimer Quant (PE/DVT) 0.37 (0.00-0.50) ug/ml Sodium 132 L (135-149) mmol/L Potassium 4.6 (3.6-5.1) mmol/L Chloride 95 L (96-114) mmol/L Carbon Dioxide 28 (20-32) mmol/L Anion Gap 9 (7-15) mEq/L BUN 24 (7-30) mg/dL Creatinine 0.9 (0.5-1.5) mg/dL Estimated Creat Clear 51.30 Estimated GFR 83 ml/min Glucose 102 (60-115) mg/dL Calcium 8.9 (8.4-10.6) mg/dL C-Reactive Protein < 0.5 L (0.5-1.0) mg/dL NT-Pro-B Natriuret Pep 631 pg/mL SARS-CoV-2 (PCR) Negative SARS-CoV-2 (Negative) Influenza Type A (PCR) Negative PCR FLU A (Negative) Influenza Type B (PCR) Negative PCR FLU B (Negative) RSV (PCR) Negative PCR RSV (Negative) POC Troponin I 0.03 0.03 (0.01-0.04) ng/ml Imaging Data Chest x-ray: Attestation: I have reviewed the pertinent imaging results. Radiologist's impression: [place] [address] Diagnostic Imaging Report Patient: Damion Baird MR#: [id number] : 1940 Acct:[id number] Loc: ED Service Date: 06/03/[address]: Ordering Physician: Hermila Albrecht M.D. Date of Service: 06/03/24 Procedure(s): XR chest 1V portable Accession Number(s): [id number] cc: Hermila Albrecht M.D.; Eddie Navarro M.D.~ For Patients: As a result of the Century Cures Act, medical imaging exams and procedure reports are released immediately into your electronic medical record. You may view this report before your referring provider. If you have questions, please contact your health care provider. INDICATION: : Chest pain and shortness of breath COMPARISON: None TECHNIQUE: One view(s) of the chest FINDINGS: Left chest wall dual lead pacemaker. The heart is enlarged, accentuated by portable technique. There is no focal airspace consolidation, pleural effusion, or pneumothorax. No displaced fractures. IMPRESSION: No acute cardiopulmonary process. Dictated by Kyle Gallegos MD @ 06/03/2024 5:44:52 PM Discharge Plan Discharge Prescriptions: No Action acetaminophen [Tylenol Arthritis Pain] 650 mg tablet extended release 650 mg PO Q12H PRN albuterol sulfate 90 mcg/actuation HFA aerosol inhaler 2 inh inhalation Q4H PRN atorvastatin 40 mg tablet 40 mg PO DAILY cyanocobalamin (vitamin B-12) 1,000 mcg capsule 1,000 mcg PO DAILY diclofenac sodium 1 % gel 4 g topical QID Rx Instructions: apply to single knee, ankle, foot; for foot includes sole/toes/top of foot Vabysmo 6 mg/0.05 mL solution 6 mg intravitreal Q9W lisinopril 2.5 mg tablet 1.25 mg PO DAILY lutein-zeaxanthin 25-5 mg capsule 1 cap PO metoprolol succinate [Toprol XL] 25 mg tablet extended release 24 hr 25 mg PO DAILY nitroglycerin [Nitrostat] 0.4 mg tablet, sublingual 0.4 mg sublingual Q5M Rx Instructions: do not exceed 3 doses per episode omega 6-jpx-vsk-fish oil 120-180-600 mg capsule 1 cap PO DAILY cholecalciferol (vitamin D3) 25 mcg (1,000 unit) capsule 1,000 unit PO DAILY clopidogrel [Plavix] 75 mg tablet 75 mg PO DAILY levothyroxine 50 mcg tablet 50 mcg PO DAILY Follow Up/Referrals: Eddie Navarro MD [Primary Care Provider] -
[2024-06-03 17:38] LABS: Basophils Absolute Auto 0.02 K/uL (0.00-0.30); Basophils Percent Auto 0.3 % (0.0-3.0); Eosinophils Absolute Auto 0.14 K/uL (0.00-0.50); Eosinophils Percent Auto 1.9 % (0.0-7.0); Hematocrit 36.5 % (37.0-53.0); Hemoglobin* 11.9 gm/dL (13.5-17.5); Immature Granulocytes Abs Auto 0.05 K/uL (0.00-0.30); Immature Granulocytes Pct Auto 0.7 %; Lymphocytes Absolute Auto 2.71 K/uL (0.90-2.90); Lymphocytes Percent Auto 36.8 % (20-44); Mean Corpuscular HGB Conc 33 gm/dL (32-36); Mean Corpuscular Hemoglobin 34 pg (26-34); Mean Corpuscular Volume 105 fL (80-100); Monocytes Percent Auto 10.6 % (0.0-11.0); Neutrophils Absolute Auto 3.66 K/uL (1.7-7.0); Neutrophils Percent Auto 49.7 % (42.0-72.0); Platelet Count* 198 K/uL (140-440); RDW Coefficient of Variation % 13.4 % (11.5-15.5); Red Blood Count 3.47 m/uL (4.30-5.90); White Blood Count* 7.36 K/uL (4.50-11.00)
[2024-06-03 17:46] LABS: Chloride* 95 mmol/L (96-114); Sodium* 132 mmol/L (135-149)
[2024-06-03 17:47] LABS: Potassium* 4.6 mmol/L (3.6-5.1)
[2024-06-03 17:49] LABS: Blood Urea Nitrogen* 24 mg/dL (7-30); Creatinine* 0.9 mg/dL (0.5-1.5); Estimated Glomerular Filt Rate 83 ml/min
[2024-06-03 17:50] LABS: Anion Gap 9 mEq/L (7-15); Calcium* 8.9 mg/dL (8.4-10.6); Carbon Dioxide* 28 mmol/L (20-32); Glucose* 102 mg/dL (60-115)
[2024-06-03 17:56] LABS: C Reactive Protein* < 0.5 mg/dL (0.5-1.0)
[2024-06-03 17:57] LABS: D Dimer Quantitative* 0.37 ug/ml (0.00-0.50)
[2024-06-03 17:58] LABS: NT Pro B Type NatriureticPept* 631 pg/mL; Slide Review Reflex Yes
[2024-06-03 18:06] LABS: Troponin, Point-of-Care* 0.03 ng/ml (0.01-0.04)
[2024-06-03 18:10] LABS: PCR FLU A Negative PCR FLU A (Negative); PCR FLU B Negative PCR FLU B (Negative); PCR RSV Negative PCR RSV (Negative); SARS PCR* Negative SARS-CoV-2 (Negative)
[2024-06-03 18:42] LABS: Slide Review Acceptable Review (Acceptable)
[2024-06-03 21:34] LABS: Troponin, Point-of-Care* 0.03 ng/ml (0.01-0.04)
[2024-06-04] VITALS (13 sets, daily range): BP systolic 123–140; BP diastolic 53–66; PULSE 60–62; RESP 11–18; TEMP 36.4–36.8; O2SAT 91–99
[2024-06-04 02:00] LABS: Troponin, Point-of-Care* 0.04 ng/ml (0.01-0.04)
== END 2024-06-04 04:55 | disposition short-term general hospital (02) ==
LOC: ED 17:06
PROVIDERS: Emergency Provider Emergency Medicine; PCP Family Medicine
DX: R07.9 Chest pain, unspecified (principal)
CPT/HCPCS: 36415; 71045; 80048; 83880; 84484; 85025; 85379; 86140; 87631; 93005; 94761; 99284; 99285

== ENCOUNTER 2024-06-04 04:45 | Outpatient (CLI) | payer MEDICARE, OTHER, SELFPAY | END 2024-06-04 04:46 | disposition home or self-care (01) | LOC: AMB 06-05 09:27 | PROVIDERS: PCP Family Medicine; Visit Provider Family Medicine | DX: R07.89 Other chest pain (principal) | CPT/HCPCS: A0425; A0427 ==

== ENCOUNTER 2024-07-15 15:09 | Emergency (ER) | payer MEDICARE, OTHER, SELFPAY ==
--- OUTSIDE RECORDS SUMMARY | 2024-07-15 15:12 | XMS_ITS | Clinical Summary ---
Author Organization [facility] Address [address] [place] [id number] Care Team Providers Care Industrial Design Intern Name Role Phone Eddie Navarro MD Primary Care Provider [phone] Cordelia Delgado MD Unavailable [phone] Bob Birmingham MD Unavailable Allergies Active Allergy Reactions Criticality Noted Date Comments Cat Dander Other - Describe In Comment Field 01/07/2019 Runny nose, sneezing, and itchy Dog Dander Other - Describe In Comment Field 01/07/2019 Sneezing, runny nose Homeopathic Products Runny Nose 11/22/2005 Medications VITAMIN D 1,000 UNIT CAP Take 1,000 units by mouth once daily. 0 009 Active acetaminophen SR (TYLENOL ARTHRITIS PAIN) 650 mg Extended-Release tablet Take 2 tablets by mouth every 12 hours. Max acetaminophen dose: 4000mg in 24 hrs. 0 014 Active lutein-zeaxanthin (OCUVITE LUTEIN 25) 25-5 mg cap Take 1 Capsule by mouth two times daily. 0 018 Active chlorhexidine (PERIDEX) 0.12 % solution Swish and spit 15 mL by mouth at bedtime. 2 09/27/ 019 Active Bfwyz-2-SEE-EPA-F ale Oil 1,000 mg (120 mg-180 mg) cap Take 1 Capsule by mouth at bedtime. 0 020 Active psyllium powd Mix 1 tsp in liquid then take by mouth once daily if needed for Constipation. 283 g 11 023 Active faricimab-svoa (VABYSMO) 6 mg/0.05 mL solution [...] & Reusable x 1pk/6mo 1 Each 11 024 Active MELATONIN ORAL Take 8 mg by mouth at bedtime if needed for Sleep. Active levothyroxine (SYNTHROID) 50 mcg tabletIndications :Acquired hypothyroidism Take 1 Tablet (50 mcg) by mouth once daily. 90 Tablet 3 025 Active atorvastatin (LIPITOR) 40 mg tabletIndications :Mixed hyperlipidemia Take 1 Tablet (40 mg) by mouth once daily. 90 Tablet 3 025 Active Additional Information Patient taking differently:40 mg OralDAILY WITH EVENING MEAL, Reported on 06/24/2024 albuterol HFA (PRO-AIR; VENTOLIN; PROVENTIL) 90 mcg/actuation inhalerIndication s:Mild intermittent asthma without complication (HC) Inhale 2 Puffs by mouth every 4 hours if needed for Shortness Of Breath. 8.5 g 2 025 Active diclofenac topical (VOLTAREN) 1 % gelIndications:Ac minoo midline low back pain with right-sided sciatica Apply 4 grams to your knee four times daily as needed for back pain. 025 Active cyanocobalamin (Vitamin B-12) 1,000 mcg tabletIndications :Vitamin B12 deficiency Take 0.5 Tablets (500 mcg) by mouth once daily. 025 Active nitroglycerin (NITROSTAT) 0.4 mg sublingual tabletIndications :CAD in [place] artery Place 1 Tablet (0.4 mg) under the tongue every 5 minutes if needed for Chest Pain. If patient requesting greater than 25 doses in 30 days, to provider to authorize 25 Tablet 6 06/06/19 25 12:58 PM CDT 025 Active sotaloL 80 mg tabletIndications :Paroxysmal atrial fibrillation (HC) Take 1 Tablet (80 mg) by mouth two times daily before meals. 60 Tablet 3 025 Active clopidogreL 75 mg tabletIndications :ASCVD (arteriosclerotic cardiovascular disease) Take 1 Tablet (75 mg) by mouth once daily. Resume on 06/26/24 90 Tablet 3 025 Active metoprolol succinate (TOPROL XL) 25 mg Sustained-Release tabletIndications :Essential hypertension Take 1 Tablet (25 mg) by mouth once daily. 90 Tablet 3 025 2024 Discontinued(* Med complete/Regim en complete/Level of care change) clopidogreL (PLAVIX) 75 mg tabletIndications :ASCVD (arteriosclerotic cardiovascular disease) Take 1 Tablet (75 mg) by mouth once daily. 90 Tablet 025 2024 Discontinued isosorbide mononitrate (IMDUR) 30 mg extended release tablet 24 HourIndications:C AD in [place] artery Take 1 Tablet (30 mg) by mouth once daily. 30 Tablet 06/06/19 25 12:58 PM CDT 025 2024 Discontinued(* IP Discontinued) Active Problems Problem Noted Date Diagnosed Date Exertional chest pain 06/04/2024 Pacemaker 11/13/2023 Overview (11/13/2023): Indication for Pacemaker: Sinus Node Dysfunction Primary MD: Mio Headley MD Primary Candy Dipper: Radha Coates MD Implanting MD: Christiano Julien MD DEVICE DATA Structural Layout Worker [employer]: Model Accolade EL DR [id number] Implant Date 12/08/2014 LEAD DATA Atrial Lead: Structural Layout Worker Guidant: Model [id number] Implant Date 12/08/2014 RV Lead: Structural Layout Worker Guidant: Model [id number] Implant Date 12/08/2014 MV [...] complications 01/06/2020 Essential hypertension 03/22/2018 CAD in [place] artery 06/14/2016 Overview (06/14/2016): He has 2 stents in his left anterior descending. One stent in his first marginal. One stent in his RCA placed in 2014 at the time of an HI. He also had a pacemaker placed then. [...] 01/28/2009 Overview (01/28/2009): Sees Retinal Specialist in [place]. Hypertrophy of prostate with urinary obstruction and other lower urinary tract symptoms (LUTS) 01/28/2009 Left knee pain 01/28/2009 Pain in joint, shoulder region 12/09/2008 Overview (12/09/2008): Right Shoulder Pain Resolved Problems Problem Noted Date Diagnosed Date Resolved Date Coronary artery disease invo lving [place] coronary artery with unstable angina pectoris 12/09/2014 01/18/2015 Overview (12/09/2014): - Hx of stent to LAD - 12/06/14 100% mRCA, 100% 1st RPL, patent LAD and OM1 stents. s/p thrombectomy and MARIELA to mRCA Inferior HI 12/06/2014 05/17/2015 Syncope 03/22/2013 05/17/2015 Chest pain [...] Coronary atherosclerosis of unspecified type of vessel, [place] or graft 08/09/2006 09/25/2011 Other chest pain 11/23/2005 11/02/2006 Unspecified asthma(493.90) 11/23/2005 0 08/11/2014 Esophageal reflux 11/23/2005 04/18/2016 Overview (04/07/2010): Intermittent:easily managed with Tums as needed. 04/07/2010 Mitral valve disorders 11/23/200511/20 Overview (11/23/2005): Mild MR ( per echo) Encounters Date Type Department Care Team Description 07/01/2024 Telephone [facility] [address] [place] [address] Celina Jarrett RN EKG results 06/30/2024 4:00 PM CDT Nurse/Clinic Staff Only [facility] [address] [place] [address] Cardiovascular Diagnostic Testing (ECG PER BARB GUEVARA NP ) 06/30/2024 Orders Only [facility] [address] [place] [address] Shobha Gabriel, <No scans attached> 06/30/2024 Orders Only [facility] [address] [facility] [address] [place] [address] Barb Guevara NP 1 scan: (1-Ord) NFLD-EKG-06/30/24 06/30/2024 Travel 06/26/2024 Telephone [facility] [address] [place] [address] Cordelia Piper MD Care Coordination 06/26/2024 Telephone [facility] [address] [place] [address] Flower Jones I, RN Device Check 06/25/2024 Telephone [facility] [place] [address] [place] [address] Manasa Duncan, ANTOINE Post Procedure 06/24/2024 12:33 PM CDT - 06/24/2024 11:59 PM CDT Hospital Encounter [facility] [address] [place] [address] Cordelia Piper MD Pacemaker (Primary Dx); Paroxysmal atrial fibrillation (HC); ASCVD (arteriosclerotic cardiovascular disease) 06/24/2024 Travel 06/23/2024 Telephone [facility] [address] [place] [address] Romana Cisse RN Pre phone call 06/16/2024 Telephone [facility] [address] [place] [address] Michelle Lehman MD Results 06/13/2024 Telephone [facility] [address] [place] [address] Celina Jarrett, RN reschedule EP procedure time 06/09/2024 12:35 PM CDT Office Visit [facility] [address] [place] [address] Chintan Kramer MD Hospital F/U 06/09/2024 Travel 06/06/2024 Telephone [facility] [address] [place] [address] Cordelia Piper MD Medication Management (Med Update ) 06/06/2024 Patient Outreach [facility] [address] [place] [address] Eddie Navarro MD Primary RN Care Management; Hospital F/U (Lace=71) 06/04/2024 5:45 AM CDT - 06/05/2024 1:46 PM CDT Hospital Encounter [facility] [address] [place] [address] [facility]ist [facility] Eddie Goncalves MD Potter, Dustin Christopher, MD CAD in [place] artery Discharge Disposition: Home Self Care 06/04/2024 Travel 06/03/2024 Orders Only [facility] Scanner 1 scan: (1-Ord) [facility], XR CHEST 1V PORTABLE, 06/03/2024 06/03/[address] [facility] [address] [place] [address] Kyle Rice MD 06/03/2024 Nurse Triage [facility] [address] [place] [address] Eddie Navarro MD Chest Pain; Difficulty Breathing 05/26/2024 Telephone [facility] [address] [place] [address] Brunilda Davalos RN, CCRN EP Procedure Scheduling 05/15/2024 10:00 AM WHARFINGER CHIEF Office Visit [facility] [id number] [place] [address] Laurel Díaz PA Follow Up (*Device Check 05/06*/discuss [employer] advisory //pt states he feels well with no new cardiac sx.) 05/15/2024 Travel 05/12/2024 Telephone [facility] [address] [place] [address] Eddie Navarro MD Procedure 05/09/2024 4:30 PM WHARFINGER CHIEF Ancillary Procedure [facility] [address] [place] [address] 05/09/2024 2:20 PM WHARFINGER CHIEF Office Visit [facility] [address] [place] [address] Eddie Navarro MD Medicare ANNUAL (subsequent) Visit (84 years) 05/09/2024 Travel 05/06/2024 Travel from Last 3 Months Immunizations Immunization Administration Dates Next Due COVID-19 vaccine (Moderna 100mcg/0.5mL) STEVEN MICHEL 06/11/2020,05/14/2020 COVID-19 vaccine (TrialScope NTIdeapod 30mcg/0.3mL) 12YO+ BIVALENT PF, MDV 12/21/2021 Hepatitis [...] Stroke Brother 3 Aamir Heart Disease Father Cordelia of CHF at 86 Cancer Maternal Grandfather in 60s of cancer Cancer Maternal Grandmother in 50s of cancer Anesthesia Problem No Family History Blood Disease No Family History Relation Name Status Comments Brother 1 Scott (Age 81) Brother 2 Padmini (Age 65) AAA Brother 3 Aamir Alive Father Cordelia (Age 86) of he art trouble Maternal Grandfather Maternal Grandmother Mother Charlotte (Age 73) Social History Tobacco Use Types Packs/Day Years Used Date Smoking Tobacco: Never Smokeless Tobacco: Never Tobacco Cessation:Counseling Given: Yes Alcohol Use Standard Drinks/Week Comments Not Currently 0 (1 standard drink = 0.6 oz pur e alcohol) up to one beer/month or less PHQ-2 Answer Date Recorded PHQ-2 TOTAL SCORE 0 05/09/2024 Social Connections Answer Date Recorded Do you often feel lonely or isolated from those around you? 0 06/04/2024 Alcohol Use Answer Date Recorded How often [...] you are able to buy more? 1 06/04/2024 Transportation Needs Answer Date Record ed Does lack of transportation keep you from medica l appointments? 1 06/04/2024 Does lack of transportation keep you from work, meetings or getting things that you need? 1 06/04/2024 Housing Stability Answer Date Recorded What is your housing situation today? 1 06/04/2024 Interpersonal Safety Answer Date Record ed Are you being hit, kicked, p ushed or yelled at (see row info)? No 06/24/2024 Interpersonal Safety Abuse 12 - 18 Not on file 06/24/2024 Interpersonal Safety Ambulatory Vulnerability No t on file 06/24/2024 Utilities Answer Date Recorded Do you have trouble paying f or utilities (for example, heat, electricity, water, phone)? 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 on file Not on fi le Not on file Obstetrics History Last Filed Vital Signs Vital Sign Reading Time Taken Comments Blood Pressure 134/71 06/24/2024 4:45 PM CDT Pulse 114 06/24/2024 4:45 PM CDT Temperature 36.4 C (97.5 F) 06/24/2024 4:45 PM CDT Respiratory Rate 20 06/24/2024 4:45 PM CDT Oxygen Saturation 96% 06/24/2024 4:45 PM CDT Inhaled Oxygen Concentration - - Weight 86.2 kg (190 lb) 06/24/2024 12:51 PM CDT Height 172.7 cm (5' 8) 06/24/2024 12:51 PM CDT Body Mass Index 28.89 06/24/2024 12:51 PM CDT Plan of Treatment Upcoming Encounters Date Type Department Care Team (Late st Contact Info) Description 08/12/2024 Cardiac Device Check [facility] [phone] 08/12/2024 2:00 PM CDT Office Visit [facility] [address] [place] [address] Bob Birmingham MD [facility] [address] [place], [place] [address] 11/04/2024 1:00 PM CDT Cardiac Device Check [facility] [address] [place] [phone] Health Maintenance Due Date Last Done Comments [...] 12/05/2023, 11/20/2013 Medical Devices Implanted Type Area Structural Layout Worker Device Identifier Shelf Expiration Date Model / Serial / Lot Standard Pacemaker-11/24 Implanted: by Christiano Julien MD (Quantity not on file) Standard Pacemaker [employer] [id number] / [id number] / Procedures Procedure Name Priority Date/Time Associated Diagnosis Comments EKG 12 LEAD Routine 06/30/2024 4:35 PM CDT Pacemaker EP PPM Routine 06/24/2024 2:52 PM CDT BASIC METABOLIC PANEL Routine 06/09/2024 1:32 PM CDT Pre-op testing CBC W PLT NO DIFF Routine 06/09/2024 1:3 2 PM CDT Pre-op testing SCAN-CARDIAC STRIP 06/05/2024 8: 09 AM CDT CBC W PLT NO DIFF Early AM 06/05/2024 6:1 4 AM CDT BASIC METABOLIC PANEL Early AM 06/05/2024 6:14 AM CDT SCAN-CARDIAC STRIP 06/05/2024 1: 50 AM CDT GLUCOSE METER Timed 06/05/2024 12:48 AM CDT SCAN-CARDIAC STRIP 06/04/2024 10 :12 PM CDT NM CARDIAC MPI STRESS TEST Routine 06/04/2024 1:59 PM CDT SCAN CORRESP-EKG RESULTS 06/04/2024 1:25 PM CDT TROPONIN T (HS) ONE TIME Timed 06/04/2024 11:28 AM CDT ECHO TTE COMPLETE WO CONTRAST Routine 06/04/2024 9:21 AM CDT TROPONIN T (HS) ONE TIME Timed 06/04/2024 9:17 AM CDT SCAN-CARDIAC STRIP 06/04/2024 7: 46 AM CDT PRO-BNP Today 06/04/2024 7:22 AM CDT TROPONIN T (HS) ACUTE W/2HR REFLEX STAT 06/04/2024 7:22 AM CDT MAGNESIUM Today 06/04/2024 7:22 AM CDT BASIC METABOLIC PANEL Today 06/04/2024 7:22 AM CDT CBC W PLT NO DIFF Today 06/04/2024 7:2 2 AM CDT SCAN-CARDIAC STRIP 06/04/2024 7: 02 AM CDT SCAN-PACER 06/04/2024 12:00 AM CDT SCAN-PACER 06/04/2024 12:00 AM CDT SCAN-PACER 06/04/2024 12:00 AM CDT SCAN-PACER 06/04/2024 12:00 AM CDT SCAN-RADIOLOGY REPORT 06/03/2024 12:00 AM CDT EKG 12 LEAD Routine 05/15/2024 9:52 AM WHARFINGER CHIEF Fitting or adjustment of cardiac pacemaker Pacemaker XR HIP 1 VIEW W PELVIS RIGHT Routine 05/09/2024 4:33 PM WHARFINGER CHIEF Hip pain, right LIPID PANEL W REFLEX MEASURED LDL Routine 05/09/2024 4:16 PM WHARFINGER CHIEF Inferior HI (HC) Mixed hyperlipidemia BASIC METABOLIC PANEL Routine 05/09/2024 4:16 PM WHARFINGER CHIEF Essential hypertension TSH WITH REFLEX Routine 05/09/2024 4:16 PM WHARFINGER CHIEF Acquired hypothyroidism CBC WITH AUTO DIFFERENTIAL Routine 05/09/2024 4:16 PM WHARFINGER CHIEF Macrocytic anemia HEMOGLOBIN A1C Routine 05/09/2024 4:16 PM WHARFINGER CHIEF Hyperglycemia from Last 3 Months Results * EKG 12 LEAD (06/30/2024 4:35 PM CDT) Only the most recent of2 resultswithin the time period is included. Barb Guevara NP EKG ORD Final Re sult * EP PPM (06/24/2024 2:52 PM CDT) Anatomical Region Laterality Modality Other 06/24/2024 2:52 PM CDT Narrative Transcriptions Cordelia Piper MD - 06/24/2024 5:51 PM CDT [facility] [place] [facility] [place] Electrophysiology Implant Report Name: BRYN BAIRD Event Date: 06/24/2024 [facility] ID #: [id number] Date: 1940 Gender: Male Age: 84 [facility] #: [id number] Procedure Performed By: CORDELIA PIPER [facility] Referring Physician: LAUREL DÍAZ Implant Procedure Type Dual Chamber Permanent Pacemaker Generator Change Summary / Conclusions PACEMAKER * Successful replacement of dual chamber pacemaker generator. * Procedure completed without incident. * Appropriate device functionality observed at end of case. ARRHYTHMIA * Paroxysmal atrial fibrillation observed. Recommendations / Plan Preoperative Diagnosis: SND, DDD PPM under advisory Procedure: DDD PPM PGC Findings/Conclusions: Successful DDD PPM pulse generator change underMAC Pocket revised to move the device lower on the chest for patient comfortand seatbelt compliance Initiation of PAF during the procedure - prior brief mode switches notedon previous device Device tethered TYRx pouch Postoperative Diagnosis: Same as preoperative diagnosis Complications: NA Personally monitored patient with conscious sedation during procedure:No Estimated Blood Loss: minimal Specimen: N/A Plan: Bedrest x 1 hour Observe on telemetry during bedrest PA/Lateral CXR after bedrest Device teaching after CXR Anticipate discharge later today Resume clopidogrel on 06/26/2024 AM Start Sotalol 80 BID today Stop Imdur EKG 06/26/24 Device check at follow up with Dr. Birmingham 07/13/24 Consider AC for PAF if he continues to have detections and mode switcheson sotalol Pre-Operative Diagnosis ? Sinus node dysfunction ? DDD PPM under advisory Post-Operative Diagnosis ? Same as Pre-operative diagnosis ? Atrial Fibrillation, Paroxysmal Indications ? Same as Pre-operative diagnosis Brief Patient History Comments * Mr. Baird is a pleasant 84 y.o. year old male with a history ofchronotropic incompetence s/p dual-chamber pacemaker 12/08/2014, coronaryartery disease s/p PCI in 2016, HLD, WALTER, obesity, and mild mitralregurgitation. He is not pacing dependent but does pace >80% in the RA andwould be very symptomatic if his device reset into Safety mode. He hasbeen referred for device pulse generator change under MAC. 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 His device pocket is high up under the clavicle and the upper edges of theheader are protuberant such that he wears his drivers side seatbelt underhis left arm. Consent & Townsend Protocol Townsend protocol was followed. TIME OUT conducted just prior tostarting procedure confirmed patient identity, site/side, procedure,patient position, and availability of correct equipment and implants (ifapplicable). The risks, benefits, and alternatives of the procedure were discussed withthe patient and written informed consent was obtained. Procedure Description After written informed consent was obtained and under sterile conditionsand MAC, the left prepectoral implant site incisional scar was infiltratedwith local anesthetic. A left prepectoral incision yielded access to the pocket. The device andleads were dissected out and the device delivered. The posterior aspect of the capsule was debrided and the pocket revised pattie sure the device was implanted deep to the prepectoral fat and fascia.Hemostasis was assured. The leads were disconnected from the pulse generator and connected to thenew generator. There was spontaneous initiation of AF. Device and lead testing revealed stable sensing, pacing and impedancevalues. The device was wrapped in an antibiotic impregnated bioabsorbable gauzepouch. The pocket was irrigated with copious antibiotic solution and the devicewas introduced into the pocket and tethered with the leads tucked behindthe generator. The pocket was closed in three layers using absorbable sutures and coveredwith a waterproof silver nitrate dressing. The procedure was well tolerated and there were no appreciablecomplications. 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 [id number] 12/08/2014 Chronic Right Atrium Right Appendage [employer] [id number] Measurement Computer Systems Administrator P/R Wave (mV) Threshold (V) Pulse Width (msec) Resistance (ohms) High Output Stim Result RA 1 428 RV 11.3 1 0.4 533 Device Settings Mode Lower Rate (bpm) Upper Rate (bpm) DDDR 60 120 HAZEL Delay: 150 msec PAV Delay: 180 msec Lead Amplitude (V) Pulse Width (msec) Sensitivity (mV) Configuration Atrial 3.5 0.4 0.5 Bipolar RV 1.0 0.4 1.0 Bipolar Features Magnet Use: Enabled Wireless Telemetry: Active Feature Status Detail Mode Switch On 150bpm AV Extension Algorithms On 400ms Procedure(s) Performed ? Pacemaker Generator Change, dual chamber Procedure Detail Estimated Blood Loss: < 50 ml Specimen Collected: None Level of Sedation Achieved: See Anesthesia Note Total Fluoro Time: 0 STEEL TESTER Total Fluoro Dose: 0 mGy Contrast: No Contrast Given, 0 ml Staff Name Role Simone Ramesh Anesthesiologist Cordelia Piper Corrosion Control Technician Ayana Duncan RN Nurse Imelda Watkins BLADE SHARPENER Monitor Barb Guevara TELESALES AGENT Scrub Toya Benítez BLADE SHARPENER Display Manager Medications Ordered and Administered Start Time Stop Time Medication Dose Units Route Ordered By Given By 14:53 1% Lidocaine Hydrochloride 10 mL Subcut MD Cordelia Mark MD 14:53 0.25% Bupivicaine 10 mL Subcut MD Cordelia Mark MD 15:07 Ancef Irrigation 1 g None MD Cordelia Mark MD The anesthesia service monitored the patient?s conscious sedation duringthe procedure. The medications listed above were verbally ordered by me and read back tome as documented above. Refer to the hemodynamic procedure log report for additional casedetails. electronically signed on 06/24/2024 5:51:23 PM with status of Final Cordelia Piper MD Implanting Candy Dipper [facility] [address] [facility] [address] [place] [address] (p) [phone](f) Laurel JUAREZ CV IMAGING Edit ed Result - Final * (ABNORMAL) CBC W PLT NO DIFF (06/09/2024 1:32 PM CDT) Only the most recent of3 resultswithin the time period is included. WHITE BLOOD CELL COUNT 6.8 3.8 - 10.8 Thousand/u L [facility] RED BLOOD CELL COUNT 3.49(L) 4.20 - 5.80 Million/uL [facility] HEMOGLOBIN 11.8(L) 13.2 - 17.1 g/dL [facility] HEMATOCRIT 36.3(L) 38.5 - 50.0 % [facility] MCV 104.0(H) 80.0 - 100.0 fL [facility] MCH 33.8(H) 27.0 - 33.0 pg [facility] MCHC 32.5 32.0 - 36.0 g/dL [facility] Comment: For adults, a slight decrease in the calculated MCHC value (in the range of 30 to 32 g/dL) is most likely not clinically significant; however, it should be interpreted with caution in correlation with other red cell parameters and the patient's clinical condition. RDW 12.0 11.0 - 15.0 % [facility] PLATELET COUNT 193 140 - 400 Thousand/u L [facility] MPV 10.9 7.5 - 12.5 fL [facility] Blood BLOOD SPECIMEN / Unknown 06/09/2024 1:32 PM CDT 06/09/2024 1:33 PM CDT us Michelle Lehman MD HEMATOLOGY Final Res ult [employer] [facility] [address] [place] [address], [facility] [address] [place] [address] * BASIC METABOLIC PANEL (06/09/2024 1:32 PM CDT) Only the most recent of4 resultswithin the time period is included. [facility] GLUCOSE 93 65 - 99 mg/dL [facility] Comment: Fasting reference interval UREA NITROGEN (BUN) 20 7 - 25 mg/dL [facility] CREATININE 1.12 0.70 - 1.22 mg/dL [facility] EGFR 64 > OR = 60 mL/min/1. 73m2 [facility] BUN/CREATININE RATIO SEE NOTE: 6 - 22 (calc) [facility] Comment: Not Reported: BUN and Creatinine are within reference range. SODIUM 137 135 - 146 mmol/L [facility] POTASSIUM 4.5 3.5 - 5.3 mmol/L [facility] CHLORIDE 100 98 - 110 mmol/L [facility] CARBON DIOXIDE 29 20 - 32 mmol/L [facility] ELECTROLYTE BALANCE 8 7 - 17 mmol/L (calc) [facility] CALCIUM 9.0 8.6 - 10.3 mg/dL [facility] Blood BLOOD SPECIMEN / Unknown 06/09/2024 1:32 PM CDT 06/09/2024 1:33 PM CDT us Michelle Lehman MD CHEMISTRY Final Res ult [facility] [address] [place] [address], [facility] [address] [place] [address] * SCAN-CARDIAC STRIP (06/05/2024 8:09 AM CDT) us Scanner OTHER Final Result * SCAN-CARDIAC STRIP (06/05/2024 1:50 AM CDT) us Scanner OTHER Final Result * (ABNORMAL) GLUCOSE METER (06/05/2024 12:48 AM CDT) [facility] Signature GLUCOSE METER 109(H) 65 - 100 mg/dL 06/05/2024 12:53 AM CDT [facility] Blood BLOOD SPECIMEN / Unknown 06/05/2024 12:48 AM CDT 06/05/2024 12:53 AM CDT us U Hospitalist Svc s CHEMISTRY Final Resu lt [facility] SENDOUT INTER[address] [phone] [place] [address] * SCAN-CARDIAC STRIP (06/04/2024 10:12 PM CDT) us Scanner OTHER Final Result * NM CARDIAC MPI STRESS TEST (06/04/2024 1:59 PM CDT) Anatomical Region Laterality Modality HEART Nuclear Medicine 06/04/2024 11:2 3 AM CDT Narrative 06/04/2024 2:55 [place] [address] Main: [email or web address] My[facility] Perfusion Report Rest/Stress 1 Day Single Isotope Gated SPECT imaging with Regadenoson(Lexiscan) stress BRYN BAIRD Farzadecho ID: [id number] Age: 84 : 1940 Nuclear Tech: LAB Exam Date: 06/04/2024 11:23 Gender: M RN/Ex. Metal Model Maker: WINIFRED/EDER Height: 68.1 in BSA: 2.01 m Monitoring Provider: ECHO BURRIS Weight: 192 lbs BMI: 29.1 kg/m Ordering Provider: WINDY PARKER Location: Inpatient Indication: Chest pain, unspecified FINAL CONCLUSIONS 1. No significant ischemia was suggested by this study. 2. There is a small fixed perfusion defect in the mid inferior and apical inferior alcantara, which may represent diaphragm attenutation artifact however infarction cannot be excluded. 3. There was no ECG evidence diagnostic for ischemia. 4. LV systolic function was normal without regional wall motion abnormalities. 5. LVEF is calculated to be 55%. 6. Compared to the prior study on 05/05/2020, a small area of attenuation artifact versus artifact is seen. PATIENT HISTORY Known CAD Risk Factors: Hypertension, Hyperlipidemia Cardiac History: Coronary artery disease, Previous HI, Previous percutaneous revascularization, Pacemaker/ICD Presenting Symptoms: Typical chest pain, Dyspnea on exertion Cardiac Meds: Aspirin. Atorvastatin. Clopidogrel Toprol XL. Nitro. Meds past 24 hrs: Same as list above. Patient DID take a prescribed beta viola today. No Nitro. STRESS TEST SUMMARY Pharmacologic Pharmacologic Indications: Orthopedic limitation Protocol: Regadenoson(Lexiscan) Dose: 0.4 mg IV Duration (m:s): 00:15 Treadmill Activity: Adjunct low level exercise was not performed Resting HR (bpm): 60 Resting BP(mmHg): 142 / 80 Position: Sitting Peak HR(bpm): 75 Peak BP(mmHg): 122 / 62 % MPHR: 56 Double Product: 9150 Recovery HR(bpm): 62 Recovery BP(mmHg): 112 / 60 BP Response: Normal HR Response: Normal Stress Termination: Completion of Lexiscan Stress Symptoms: Pharmacologic stress agent provoked a typical vasodilator response (including lightheaded, warm, flushing. Baseline CP 2-3/10 unchanged.). Meds Given: NONE ECG Resting ECG: Atrial paced rhythm. Incomplete right bundle branch block. Resting Arrhythmia: None Stress ECG: Stress ECG did not show any ST segment change. Stress ECG is negative for myocardial ischemia. Stress Arrhythmia: Occasional APCs,, Occasional PVCs. IMAGE PROTOCOL Rest/Stress 1 Day Radiopharmaceutical Dose (mCi) Route Injection Time Injection Date Inj to Img Time (min) Administered By Rest: 99mTc Sestamibi 8.5 IV 1123 06/04/2024 103 LAB Stress: 99mTc Sestamibi 26.1 IV 1312 06/04/2024 48 KRS Post-Injection Exercise: No exercise followed the intravenous injection PERFUSION RESULTS Technical Quality: Raw Data Analysis: Supine imaging was performed. Post-Stress Perfusion Rest Perfusion Basal Anterior: 0 Basal Anterior: 0 Basal Anteroseptal: 0 Basal Anteroseptal: 0 Basal Inferoseptal: 0 Basal Inferoseptal: 0 Basal Inferior: 0 Basal Inferior: 0 Basal Inferolateral: 0 Basal Inferolateral: 0 Basal Anterolateral: 0 Basal Anterolateral: 0 Mid Anterior: 0 Mid Anterior: 2 Mid Anteroseptal: 0 Mid Anteroseptal: 0 Mid Inferoseptal: 0 Mid Inferoseptal: 0 Mid Inferior: 0 Mid Inferior: 0 Mid Inferolateral: 0 Mid Inferolateral: 0 Mid Anterolateral: 0 Mid Anterolateral: 0 Apical Anterior: 0 Apical Anterior: 0 Apical Septal: 0 Apical Septal: 0 Apical Inferior: 0 Apical Inferior: 0 Apical Lateral: 0 Apical Lateral: 0 Edinburgh: 0 Edinburgh: 0 Summed Stress Score: 0 Summed Rest Score: 2 Summed Difference Score: -2 0 - Normal 2 - Moderately Reduced Uptake 4 - Absent 1 - Mildly Reduced Uptake 3 - Severely Reduced Uptake X - Not Interpretable Perfusion: Images demonstrated a small sized, fixed perfusion abnormality in the mid inferior and apical inferior wall, consistent with diaphragm attenuation versus infarction. FUNCTION Calculated via Gated SPECT Post Stress LV EF: 55 % EDV: 113 ml EDVI: 55 ml/m ESV: 51 ml ESVI: 25 ml/m LV Size and Function: Normal left ventricular size and systolic function with a calculated LVEF of 55%. LV Regional Function: Normal left ventricular wall motion. August Acosta MD [facility] Accredited Site (Electronically Signed) Final Date: 04 June 2024 14:55 ICD-10 Codes: R07.9 CC Providers: Eddie Navarro Procedure Note August Acosta MD - 06/04/2024 [place] [address] Main: [email or web address] Myocardial Perfusion Report Rest/Stress 1 Day Single Isotope Gated SPECT imaging withRegadenoson(Lexiscan) stress BRYN BAIRD Kolby ID: [id number] Age: 84 : 1940 Nuclear Tech: LAB Exam Date: 06/04/2024 11:23 Gender: M RN/Ex. Metal Model Maker: WINIFRED/EDER Height: 68.1 in BSA: 2.01 m Monitoring Provider:ECHO BURRIS Weight: 192 lbs BMI: 29.1 kg/m Ordering Provider: WINDY PARKER Location: Inpatient Indication: Chest pain, unspecified FINAL CONCLUSIONS 1. No significant ischemia was suggested by this study. 2. There is a small fixed perfusion defect in the mid inferior and apicalinferior alcantara, which may represent diaphragm attenutation artifact however infarction cannot be excluded. 3. There was no ECG evidence diagnostic for ischemia. 4. LV systolic function was normal without regional wall motionabnormalities. 5. LVEF is calculated to be 55%. 6. Compared to the prior study on 05/05/2020, a small area of attenuationartifact versus artifact is seen. PATIENT HISTORY Known CAD Risk Factors: Hypertension, Hyperlipidemia Cardiac History: Coronary artery disease, Previous HI, Previouspercutaneous revascularization, Pacemaker/ICD Presenting Symptoms: Typical chest pain, Dyspnea on exertion Cardiac Meds: Aspirin. Atorvastatin. Clopidogrel Toprol XL. Nitro. Meds past 24 hrs: Same as list above. Patient DID take a prescribed betablocker today. No Nitro. STRESS TEST SUMMARY Pharmacologic Pharmacologic Indications: Orthopediclimitation Protocol: Regadenoson(Lexiscan) Dose: 0.4 mg IV Duration (m:s): 00:15 Treadmill Activity: Adjunct low level exercise was not performed Resting HR (bpm): 60 Resting BP(mmHg): 142 / 80 Position: Sitting Peak HR(bpm): 75 Peak BP(mmHg): 122 / 62 % MPHR: 56 Double Product:9150 Recovery HR(bpm): 62 Recovery BP(mmHg): 112 / 60 BP Response: Normal HR Response: Normal Stress Termination: Completion of Lexiscan Stress Symptoms: Pharmacologic stress agent provoked a typicalvasodilator response (including lightheaded, warm, flushing. Baseline CP 2-3/10 unchanged.). Meds Given: NONE ECG Resting ECG: Atrial paced rhythm. Incomplete right bundle branch block. Resting Arrhythmia: None Stress ECG: Stress ECG did not show any ST segment change. Stress ECG is negative for myocardial ischemia. Stress Arrhythmia: Occasional APCs,, Occasional PVCs. IMAGE PROTOCOL Rest/Stress 1 Day Radiopharmaceutical Dose (mCi) Route Injection Time Injection Date Inj toImg Time (min) Administered By Rest: 99mTc Sestamibi 8.5 IV 1123 06/04/2024 103 LAB Stress: 99mTc Sestamibi 26.1 IV 1312 06/04/2024 48 KRS Post-Injection Exercise: No exercise followed the intravenous injection PERFUSION RESULTS Technical Quality: Raw Data Analysis: Supine imaging was performed. Post-Stress Perfusion Rest Perfusion Basal Anterior: 0 Basal Anterior: 0 Basal Anteroseptal: 0 Basal Anteroseptal: 0 Basal Inferoseptal: 0 Basal Inferoseptal: 0 Basal Inferior: 0 Basal Inferior: 0 Basal Inferolateral: 0 Basal Inferolateral: 0 Basal Anterolateral: 0 Basal Anterolateral: 0 Mid Anterior: 0 Mid Anterior: 2 Mid Anteroseptal: 0 Mid Anteroseptal: 0 Mid Inferoseptal: 0 Mid Inferoseptal: 0 Mid Inferior: 0 Mid Inferior: 0 Mid Inferolateral: 0 Mid Inferolateral: 0 Mid Anterolateral: 0 Mid Anterolateral: 0 Apical Anterior: 0 Apical Anterior: 0 Apical Septal: 0 Apical Septal: 0 Apical Inferior: 0 Apical Inferior: 0 Apical Lateral: 0 Apical Lateral: 0 Edinburgh: 0 Edinburgh: 0 Summed Stress Score: 0 Summed Rest Score: 2 Summed Difference Score: -2 0 - Normal 2 - ModeratelyReduced Uptake 4 - Absent 1 - Mildly Reduced Uptake 3 - Severely Reduced UptakeX - Not Interpretable Perfusion: Images demonstrated a small sized, fixed perfusion abnormalityin the mid inferior and apical inferior wall, consistent with diaphragm attenuation versus infarction. FUNCTION Calculated via Gated SPECT Post Stress LV EF: 55 % EDV: 113 ml EDVI: 55 ml/m ESV: 51 ml ESVI: 25 ml/m LV Size and Function: Normal left ventricular size and systolic functionwith a calculated LVEF of 55%. LV Regional Function: Normal left ventricular wall motion. August Acosta MD [facility] Accredited Site (Electronically Signed) Final Date: 04 June 2024 14:55 ICD-10 Codes: R07.9 CC Providers: Eddie Navarro us Windy Parker MD NM Final Res ult * SCAN CORRESP-EKG RESULTS (06/04/2024 1:25 PM CDT) Narrative 06/04/2024 1:25 PM CDT Ordered by an unspecified provider. us Other Clinical Staff OTHER Final Resul t * (ABNORMAL) TROPONIN T (HS) ONE TIME (06/04/2024 11:28 AM CDT) Only the most recent of2 resultswithin the time period is included. TROPONIN T HS 35(H) 6-15 ng/L ng/L 06/04/2024 11:56 AM CDT [facility] Blood BLOOD SPECIMEN / Unknown Venipuncture / Unknown 06/04/2024 11:28 AM CDT 06/04/2024 11:34 AM CDT us Nancy JUAREZ CHEMISTRY Final Resul t [facility] SENDOUT INTERNAL ZIP [id number] [address] [place] [address] * ECHO TTE COMPLETE WO CONTRAST (06/04/2024 9:21 AM CDT) Pathologist [facility] [place] EJECTION FRACTION 55-60% PROSOLV Anatomical Region Laterality Modality Ultrasound 06/04/2024 8:48 AM CDT Narrative 06/04/2024 10:28 [place] [address] Main: [email or web address] Transthoracic Echo Report BRYN BAIRD ID: [id number] Age: 84 : 1940 Ordering Provider: NANCY TERRY Exam Date: 06/04/2024 08:48 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 Normal left ventricular size and systolic function (calculated LVEF 57%). Abnormal ventricular septal motion due to pacing. 2. Mild right ventricular chamber enlargement with normal systolic function. Estimated right ventricular systolic pressure 34 mmHg. 3. Indeterminate left ventricular diastolic function. 4. Mild biatrial enlargement. 5. No significant valvular heart disease; age-related valvular changes are noted. 6. No pericardial effusion. 7. Previous study not available for comparison. Estimated EF: 55-60% FINDINGS Left Ventricle Normal left ventricular chamber size. Basal ventricular septal thickening (1.1 cm). Normal left ventricular systolic function. Calculated left ventricular ejection fraction (modified Kim technique) is 57 %. Abnormal ventricular septal motion due to pacing. Diastolic Function Indeterminate left ventricular diastolic function. Right Ventricle Mild right ventricular chamber enlargement. Normal right ventricular systolic function. Estimated right ventricular systolic pressure is 34 mmHg. Left Atrium Mild left atrial enlargement. Left atrial volume index is 40 ml/m . Right Atrium Mild right atrial enlargement. Atrial Septum No evidence of inter-atrial shunt by color flow Doppler. Aortic Valve Trileaflet aortic valve. Aortic valve sclerosis without stenosis. Trivial aortic valve regurgitation. Mitral Valve Mildly thickened mitral valve. No mitral valve stenosis. Mild mitral valve regurgitation. Tricuspid Valve Normal tricuspid valve. Trivial-mild tricuspid valve regurgitation. Pulmonic Valve Normal pulmonary valve. No pulmonary valve regurgitation. Pericardium No pericardial effusion. Aorta Normal aortic sinus of Valsalva dimension (3.4 cm). Normal ascending aorta dimension (3.8 cm). Inferior Vena Cava Normal inferior vena cava with normal inspiratory collapse. Other Device lead(s) identified in the right atrium and right ventricle. MEASUREMENTS (Male / Female) Normal Values 2D MEASUREMENTS AND LV FUNCTION IVS Diastolic Thickness 1.12 cm < 1.1 cm / < 1.0 cm LV Diastolic Diameter PLAX 4.79 cm 4.2 - 5.9 / 3.9 - 5.3 cm LV Diastolic Diameter Index 2.38 cm/m LVPW Diastolic Thickness 0.739 cm < 1.1 cm / < 1.0 cm LV Systolic Diameter PLAX 3.27 cm LV Systolic Diameter Index 1.63 cm/m LVOT Diameter 2.1 cm LVOT Cardiac Output 5.17 l/min LVOT Cardiac Index 2.5 l/min m LVOT Stroke Volume 86.2 ml Stroke Volume Index 41.7 ml/m LV Ejection Fraction MOD BP 56.9 % >= 55 % LA Volume MOD BP 81.2 ml LA Volume Index MOD BP 40.4 ml/m 16 - 34 ml/m RV Diastolic Basal Diameter 4.38 cm RV Diastolic Mid Diameter 3.37 cm LV Mass 154 g LV Mass Index 75.2 g/m Sinuses of Valsalva Diameter(d) 3.4 cm Ascending Aorta Diameter(s) 3.8 cm IVC Diameter Expiration 2.02 cm Ascending Aorta Index 1.89 cm/m M MODE TAPSE MM 2.6 cm DIASTOLOGY Mitral E Point Velocity 0.643 m/sec 0.70 - 1.02 m/sec Mitral A Point Velocity 0.667 m/sec 0.06 - 1.06 m/sec Mitral E to A Ratio 0.964 1.1 - 2.1 MV Deceleration Time 237 msec 167 - 231 msec LV E' Lateral Velocity 0.0794 m/sec Mitral E to LV E' Lateral Ratio 8.1 LV E' Septal Velocity 0.0598 m/sec Mitral E to LV E' Septal Ratio 10.8 AORTIC VALVE AV Peak Velocity 1.52 m/sec < 2.0 m/sec AV Peak Gradient 9.24 mmHg AV Mean Gradient 5 mmHg AV Velocity Time Integral 39 cm LVOT Peak Velocity 1.03 m/sec LVOT Velocity Time Integral 24.9 cm AV Area Cont Eq vti 2.21 cm AV Area Cont Eq pk 2.35 cm AV Dimensionless Index 0.638 AI Pressure Half Time 456 msec MITRAL VALVE MV Pressure Half Time 69 msec MV Area PHT 3.19 cm TRICUSPID VALVE AND ESTIMATED PRESSURES TR Peak Velocity 2.77 m/sec TR Peak Gradient 30.7 mmHg Right Atrial Pressure 3 mmHg Right Ventricular Systolic Press 33.7 mmHg HCM DATA LVOT JESSE (r) 4.24 mmHg Aortic Root ZScore: -1.75 Echo Burris MD (Electronically Signed) 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 Normal left ventricular size and systolic function (calculated LVEF57%). Abnormal ventricular septal motion due to pacing. 2. Mild right ventricular chamber enlargement with normal systolicfunction. Estimated right ventricular systolic pressure 34 mmHg. 3. Indeterminate left ventricular diastolic function. 4. Mild biatrial enlargement. 5. No significant valvular heart disease; age-related valvular changesare noted. 6. No pericardial effusion. 7. Previous study not available for comparison. Estimated EF: 55-60% FINDINGS Left Ventricle Normal left ventricular chamber size. Basal ventricularseptal thickening (1.1 cm). Normal left ventricular systolic function. Calculated left ventricular ejection fraction (modified Simpsontechnique) is 57 %. Abnormal ventricular septal motion due to pacing. Diastolic Function Indeterminate left ventricular diastolic function. Right Ventricle Mild right ventricular chamber enlargement. Normal rightventricular systolic function. Estimated right ventricular systolic pressure is 34 mmHg. Left Atrium Mild left atrial enlargement. Left atrial volume index is 40ml/m . Right Atrium Mild right atrial enlargement. Atrial Septum No evidence of inter-atrial shunt by color flow Doppler. Aortic Valve Trileaflet aortic valve. Aortic valve sclerosis withoutstenosis. Trivial aortic valve regurgitation. Mitral Valve Mildly thickened mitral valve. No mitral valve stenosis.Mild mitral valve regurgitation. Tricuspid Valve Normal tricuspid valve. Trivial-mild tricuspid valveregurgitation. Pulmonic Valve Normal pulmonary valve. No pulmonary valveregurgitation. Pericardium No pericardial effusion. Aorta Normal aortic sinus of Valsalva dimension (3.4 cm). Normalascending aorta dimension (3.8 cm). Inferior Vena Cava Normal inferior vena cava with normal inspiratorycollapse. Other Device lead(s) identified in the right atrium and rightventricle. MEASUREMENTS (Male / Female) Normal Values 2D MEASUREMENTS AND LV FUNCTION IVS Diastolic Thickness 1.12 cm < 1.1 cm / < 1.0cm LV Diastolic Diameter PLAX 4.79 cm 4.2 - 5.9 / 3.9 -5.3 cm LV Diastolic Diameter Index 2.38 cm/m LVPW Diastolic Thickness 0.739 cm < 1.1 cm / < 1.0cm LV Systolic Diameter PLAX 3.27 cm LV Systolic Diameter Index 1.63 cm/m LVOT Diameter 2.1 cm LVOT Cardiac Output 5.17 l/min LVOT Cardiac Index 2.5 l/min m LVOT Stroke Volume 86.2 ml Stroke Volume Index 41.7 ml/m LV Ejection Fraction MOD BP 56.9 % >= 55 % LA Volume MOD BP 81.2 ml LA Volume Index MOD BP 40.4 ml/m 16 - 34 ml/m RV Diastolic Basal Diameter 4.38 cm RV Diastolic Mid Diameter 3.37 cm LV Mass 154 g LV Mass Index 75.2 g/m Sinuses of Valsalva Diameter(d) 3.4 cm Ascending Aorta Diameter(s) 3.8 cm IVC Diameter Expiration 2.02 cm Ascending Aorta Index 1.89 cm/m M MODE TAPSE MM 2.6 cm DIASTOLOGY Mitral E Point Velocity 0.643 m/sec 0.70 - 1.02m/sec Mitral A Point Velocity 0.667 m/sec 0.06 - 1.06m/sec Mitral E to A Ratio 0.964 1.1 - 2.1 MV Deceleration Time 237 msec 167 - 231 msec LV E' Lateral Velocity 0.0794 m/sec Mitral E to LV E' Lateral Ratio 8.1 LV E' Septal Velocity 0.0598 m/sec Mitral E to LV E' Septal Ratio 10.8 AORTIC VALVE AV Peak Velocity 1.52 m/sec < 2.0 m/sec AV Peak Gradient 9.24 mmHg AV Mean Gradient 5 mmHg AV Velocity Time Integral 39 cm LVOT Peak Velocity 1.03 m/sec LVOT Velocity Time Integral 24.9 cm AV Area Cont Eq vti 2.21 cm AV Area Cont Eq pk 2.35 cm AV Dimensionless Index 0.638 AI Pressure Half Time 456 msec MITRAL VALVE MV Pressure Half Time 69 msec MV Area PHT 3.19 cm TRICUSPID VALVE AND ESTIMATED PRESSURES TR Peak Velocity 2.77 m/sec TR Peak Gradient 30.7 mmHg Right Atrial Pressure 3 mmHg Right Ventricular Systolic Press 33.7 mmHg HCM DATA LVOT JESSE (r) 4.24 mmHg Aortic Root ZScore: -1.75 Echo Burris MD (Electronically Signed) [facility] Accredited Site Final Date: 04 June 2024 10:27 ICD-10 Codes: 786.9 us Nancy JUAREZ ECHO ORD Final Resul t * SCAN-CARDIAC STRIP (06/04/2024 7:46 AM CDT) us Scanner OTHER Final Result * (ABNORMAL) TROPONIN T (HS) ACUTE W/2HR REFLEX (06/04/2024 7:22 AM CDT) TROPONIN T HS 37(H) 6-15 ng/L ng/L 06/04/2024 7:56 AM CDT [facility] Blood BLOOD SPECIMEN / Unknown Venipuncture / Unknown 06/04/2024 7:22 AM CDT 06/04/2024 7:25 AM CDT Narrative [facility] - 06/04/2024 7:56 AM CDT hs-cTnT (Elecsys Troponin T Gen 5) concentration (s) above the sex-specific 99th percentile (16 ng/L or greater for males or 11 ng/L or greater for females) are indicative of myocardial injury. If initial hs-cTnT <=100 ng/L at presentation, a 0h/2h ABSOLUTE (ng/L) delta change (rising or falling) of >=10 ng/L suggests a significant change, whereas a 0h/2h delta change <=3 ng/L suggests no significant change. If initial hs-cTnT >100 ng/L at presentation, a 0h/2h/ RELATIVE (percent, %) delta change of 20% is suggested to distinguish patients with acute vs. chronic myocardial injury. There are multiple etiologies that can cause hs-cTnT increases above the 99th percentile (myocardial injury) other than acute myocardial infarction. Clinical context and careful clinical evaluation are critical for diagnosis and risk-stratification. The diagnosis of acute myocardial infarction requires a rising and/or falling pattern in hs-cTnT concentrations with at least one value above the sex-specific 99th percentile PLUS at least one of the following clinical criteria: ischemic symptoms, new or presumed new significant ST-T wave changes or new LBBB, development of pathological Q waves, imaging evidence of new loss of viable myocardium or new regional wall motion abnormality, or identification of intracoronary atherothrombosis or an acute angiographic culprit on coronary angiography. In appropriate low-risk patients with a non-ischemic electrocardiogram without active chest pain with a symptom onset >3-hours without recurrence, a single initial hs-cTnT<6 ng/L identifies patient with a very low risk in emergency department patient population. Nancy JUAREZ CHEMISTRY Final Resul t [facility] SENDOUT INTERNAL ZIP [id number] [address] [place] [address] * (ABNORMAL) PRO-BNP (06/04/2024 7:22 AM CDT) [facility] Signature PRO-BNP 722(H) <450 pg/mL 06/04/2024 7:59 AM CDT [facility] Blood BLOOD SPECIMEN / Unknown Venipuncture / Unknown 06/04/2024 7:22 AM CDT 06/04/2024 7:25 AM CDT Narrative [facility] - 06/04/2024 7:59 AM CDT The following cut-points have been suggested for the use of proBNP for the diagnostic evaluation of heart failure (HF) in patient with acute dyspnea. Patients with eGFR >= 60 Diagnosis (rule in CHF) <50 Years Old 450 pg/mL 50 - 75 Years Old 900 pg/mL >75 Years Old 1800 pg/mL Exclusion (rule out CHF) Age Independent 300 pg/mL A cutoff of 1200 pg/mL for patients with an eGFR <60 yields a diagnostic sensitivity of 89% and specificity of 72% for acute congestive heart failure. us Nancy JUAREZ SEND OUTS Final Resul t Performing Organization Address [facility]/ZIP Co de Phone Number [facility] SENDOUT INTERNAL ZIP [phone] [place] [address] * MAGNESIUM (06/04/2024 7:22 AM CDT) [facility] MAGNESIUM 2.0 1.6 - 2.4 mg/dL 06/04/2024 7:56 AM CDT [facility] Blood BLOOD SPECIMEN / Unknown Venipuncture / Unknown 06/04/2024 7:22 AM CDT 06/04/2024 7:25 AM CDT us Nancy JUAREZ CHEMISTRY Final Resul t Performing Organization Address [facility]/ZIP Co de Phone Number [facility] SENDOUT INTERNAL ZIP [phone] [place] [address] * SCAN-CARDIAC STRIP (06/04/2024 7:02 AM CDT) us Scanner OTHER Final Result * SCAN-PACER (06/04/2024 12:00 AM CDT) Narrative 06/04/2024 12:00 AM CDT Ordered by an unspecified provider. us Other Clinical Staff OTHER Final Resul t * SCAN-PACER (06/04/2024 12:00 AM CDT) Narrative 06/04/2024 12:00 AM CDT Ordered by an unspecified provider. us Other Clinical Staff OTHER Final Resul t * SCAN-PACER (06/04/2024 12:00 AM CDT) Narrative 06/04/2024 12:00 AM CDT Ordered by an unspecified provider. us Other Clinical Staff OTHER Final Resul t * SCAN-PACER (06/04/2024 12:00 AM CDT) Narrative 06/04/2024 12:00 AM CDT Ordered by an unspecified provider. us Other Clinical Staff OTHER Final Resul t * SCAN-RADIOLOGY REPORT (06/03/2024 12:00 AM CDT) Anatomical Region Laterality Modality Other us Scanner OTHER Final Result * XR HIP 1 VIEW W PELVIS RIGHT (05/09/2024 4:33 PM WHARFINGER CHIEF) Anatomical Region Laterality Modality HIPS, HIPR, [facility] 05/12/2024 8:03 AM WHARFINGER CHIEF Narrative 05/12/2024 8:03 AM WHARFINGER CHIEF For Patients: As a result of the [...] 05/12/2024 8:03:28 AM (Electronically Signed) Procedure Note Mialgros Heath MD - 05/12/2024 For Patients: As a result of the Century Cures Act, medical imagingexams and procedure reports [...] * (ABNORMAL) HEMOGLOBIN A1C (05/09/2024 4:16 PM WHARFINGER CHIEF) HEMOGLOBIN A1C 5.7(H) <5.7 % of total Hgb [facility] Comment: For someone without known diabetes, a [...] BLOOD SPECIMEN / Unknown 05/09/2024 4:16 PM WHARFINGER CHIEF 05/09/2024 4:16 PM WHARFINGER CHIEF Narrative [facility] - 05/10/2024 5:09 AM WHARFINGER CHIEF FASTING:NO FASTING: NO Eddie Navarro MD CHEMISTRY Final Resu lt [facility] [address] [place] [address], [facility] [address] [place] [address] * TSH WITH REFLEX (05/09/2024 4:16 PM WHARFINGER CHIEF) TSH W/REFLEX TO FT4 2.10 0.40 - 4.50 mIU/L [facility] Blood BLOOD SPECIMEN / Unknown 05/09/2024 4:16 PM WHARFINGER CHIEF 05/09/2024 4:16 PM WHARFINGER CHIEF Narrative [facility] - 05/10/2024 4:31 AM WHARFINGER CHIEF FASTING:NO FASTING: NO us Eddie Navarro MD CHEMISTRY Final Resu lt [facility] [address] [place] [address], [facility] [address] [place] [address] * (ABNORMAL) LIPID PANEL W REFLEX MEASURED LDL (05/09/2024 4:16 PM WHARFINGER CHIEF) Pathologist [facility] [place] CHOLESTEROL, TOTAL 81 <200 mg/dL [facility] [...] factors. LDL-C is now calculated using the Manoj calculation, which is a validated novel method providing better accuracy than the Friedewald equation in the estimation of LDL-C. Khanh SS et al. CINTHIA. 2013;310(19): 2172-7885 (http://education.Hylete/faq/LNA008) CHOL/HDLC RATIO 2.6 <5.0 (calc) [facility] NON HDL CHOLESTEROL 50 <130 mg/dL (calc) [facility] Comment: For patients with diabetes plus 1 major ASCVD risk factor, treating to a non-HDL-C goal of <100 mg/dL (LDL-C of <70 mg/dL) is considered a therapeutic option. Blood BLOOD SPECIMEN / Unknown 05/09/2024 4:16 PM WHARFINGER CHIEF 05/09/2024 4:16 PM WHARFINGER CHIEF Narrative [facility] - 05/10/2024 6:16 AM WHARFINGER CHIEF FASTING:NO FASTING: NO Eddie Navarro MD CHEMISTRY Final Resu lt [facility] [address] [place] [address], [facility] [address] [place] [address] * (ABNORMAL) CBC AND DIFFERENTIAL (05/09/2024 4:16 PM WHARFINGER CHIEF) Pathologist [facility] [place] WHITE BLOOD CELL COUNT 6.7 3.8 - 10.8 Thousand/u L [facility] RED BLOOD CELL COUNT 3.65(L) [...] 206 140 - 400 Thousand/u L [facility] MPV 10.7 7.5 - 12.5 [...] BLOOD SPECIMEN / Unknown 05/09/2024 4:16 PM WHARFINGER CHIEF 05/09/2024 4:16 PM WHARFINGER CHIEF Narrative [facility] - 05/10/2024 4:13 AM WHARFINGER CHIEF FASTING:NO FASTING: NO us Eddie Navarro MD HEMATOLOGY Final Resu lt [facility] [address] [place] [address], [facility] [address] [place] [address] from Last 3 Months Insurance MEDICARE PART B HB ONLY MR [place] MEDICARE PART B HB ONLY MEDICARE PART A HB ONLY MEDICARE PART B HB ONLY Member Subscriber Plan / Payer (Ef fective 2003-Present) Name:Bryn Baird Asher Member ID:[id number] Relation to Subscriber:Self Name:Bryn Baird Subscriber ID:[id number] Payer ID:Not on file Group ID:Not on file Type:Not on file Address: ATTN: CLAIMS [address] [place], [place] [address] [place] [address] MEDICARE PART A HB ONLY Member Subscriber Plan / Payer (Ef fective 2003-Present) Name:Bryn Baird Asher Member ID:[id number] Relation to Subscriber:Self Name:Bryn Baird Asher Subscriber ID:[id number] Payer ID:Not on file Group ID:Not on file Type:Not on file Address: ATTN: CLAIMS [address] [place], [place] [address] [place] [address] MEDICARE PB ONLY Member Subscriber Plan / Payer (Ef fective 2018-Present) Name:Baird Bryn Asher Member ID:[id number] Relation to Subscriber:Self Name:Bryn Baird Asher Subscriber ID:[id number] Payer ID:Not on file Group ID:Not on file Type:Not on file Address: ATTN: CLAIMS [address] [place], [place] [address] [place] [address] [place] [id number] Advance Directives Documents on File Type Date Recorded Patient Wheel Grinder Expl anation Healthcare Directive 06/17/2005 [facility], [facility], 06/17/05 * DNR (Latest Code Status on File) Date Activated Date Inactivated Comments 06/04/2024 1:35 PM 06/05/2024 3:46 PM Question Answer Comments Code Status Discussion: Reviewed Preferences * Full Code Date Activated Date Inactivated Comments 06/04/2024 1:28 PM 06/04/2024 1:35 PM Question Answer Comments Code Status Discussion: Reviewed Preferences * Full Code Date Activated Date Inactivated Comments 12/06/2014 2:51 PM 12/09/2014 3:03 PM * Full Code Date Activated Date Inactivated Comments 03/27/2013 7:06 AM 03/27/2013 2:58 PM * Full Code Date Activated Date Inactivated Comments 03/21/2013 10:46 PM 03/22/2013 3:06 PM 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
[2024-07-15 15:13] VITALS: BP 152/71; PULSE 61; RESP 18; TEMP 36.6; O2SAT 96; BMI 28.6
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
--- OUTSIDE RECORDS SUMMARY | 2024-07-15 15:55 | XMS_ITS | Clinical Summary ---
Author Organization [email or web address] [facility] Address [address] [place] [address] Care Team Providers Care Siebel Solution Architect Name Role Phone Eddie Navarro MD Primary Care Provider [phone] Cordelia Delgado MD Unavailable [phone] Bob Birmingham MD Unavailable Allergies Active [...] mouth at bedtime. 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 30 Tablet 06/06/19 25 12:58 PM CDT 025 2024 Discontinued(* IP Discontinued) Active Problems Problem Noted Date Diagnosed Date Exertional chest pain 06/04/2024 Pacemaker 11/13/2023 Overview (11/13/2023): Indication for Pacemaker: Sinus Node Dysfunction Primary MD: Mio Headley MD Primary Beaver Trapper: Radha Coates MD Implanting MD: Christiano Julien MD DEVICE DATA Global Coordinator Walker Scientific: Model Accolade EL DR L321 Implant Date 12/08/2014 LEAD DATA Atrial Lead: Global Coordinator Guidant: Model 4135 Implant Date 12/08/2014 RV Lead: Global Coordinator Guidant: Model 4136 Implant Date 12/08/2014 MV [...] complications 01/06/2020 Essential hypertension 03/22/2018 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 One stent in his first marginal. One stent in his RCA placed in 2014 at the time of an ID. He also had a pacemaker placed then. [...] 01/28/2009 Overview (01/28/2009): Sees Retinal Specialist in [place]. Hypertrophy of prostate with urinary obstruction and other lower urinary tract symptoms (LUTS) 01/28/2009 Left knee pain 01/28/2009 Pain in joint, shoulder region 12/09/2008 Overview (12/09/2008): Right Shoulder Pain Resolved Problems Problem Noted Date Diagnosed Date Resolved Date Coronary artery disease invo lving anvik coronary artery with unstable angina pectoris 12/09/2014 01/18/2015 Overview (12/09/2014): - Hx of stent to LAD - 12/06/14 100% mRCA, 100% 1st RPL, patent LAD and OM1 stents. s/p thrombectomy and MARIELA to mRCA Inferior ID 12/06/2014 05/17/2015 Syncope 03/22/2013 05/17/2015 Chest pain [...] Coronary atherosclerosis of unspecified type of vessel, anvik or graft 08/09/2006 09/25/2011 Other chest pain 11/23/2005 11/02/2006 Unspecified asthma(493.90) 11/23/2005 0 08/11/2014 Esophageal reflux 11/23/2005 04/18/2016 Overview (04/07/2010): Intermittent:easily managed with Tums as needed. 04/07/2010 Mitral valve disorders 11/23/200511/20 Overview (11/23/2005): Mild MR ( per echo) Encounters Date Type Department Care Team Description 07/01/2024 Telephone [facility] [address] [place] [address] Celina Jarrett RN EKG results 06/30/2024 4:00 PM CDT Nurse/Clinic Staff Only [facility] [address] [place] [address] Cardiovascular Diagnostic Testing (ECG PER BARB GUEVARA NP ) 06/30/2024 Orders Only [facility] [address] [place] [address] Shobha Gabriel, <No scans attached> 06/30/2024 Orders Only [facility] [address] [facility] [address] [place] [address] Barb Guevara NP 1 scan: (1-Ord) NFLD-EKG-06/30/24 06/30/2024 Travel 06/26/2024 Telephone [facility] [address] [place] [address] Cordelia Piper MD Care Coordination 06/26/2024 Telephone [facility] [address] [place] [address] Flower Jones I, RN Device Check 06/25/2024 Telephone [facility] [address] [place] [address] Manasa Duncan, ANTOINE Post Procedure 06/24/2024 12:33 PM CDT - 06/24/2024 11:59 PM CDT Hospital Encounter [facility] [address] [place] [address] Cordelia Piper MD Pacemaker (Primary Dx); Paroxysmal atrial fibrillation (HC); ASCVD (arteriosclerotic cardiovascular disease) 06/24/2024 Travel 06/23/2024 Telephone [facility] [address] [place] [address] Romana Cisse RN Pre phone call 06/16/2024 Telephone [facility] [address] [place] [address] Michelle Lehman MD Results 06/13/2024 Telephone [facility] [address] [place] [address] Celina Jarrett, RN reschedule EP procedure time 06/09/2024 12:35 PM CDT Office Visit [facility] [address] [place] [address] Chintan Kramer MD Hospital F/U 06/09/2024 Travel 06/06/2024 Telephone [facility] [address] [place] [address] Cordelia Piper MD Medication Management (Med Update ) 06/06/2024 Patient Outreach [facility] [address] [place] [address] Eddie Navarro MD Primary RN Care Management; Hospital F/U (Lace=71) 06/04/2024 5:45 AM CDT - 06/05/2024 1:46 PM CDT Hospital Encounter 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 Discharge Disposition: Home Self Care 06/04/2024 Travel 06/03/2024 Orders Only [facility] Scanner 1 scan: (1-Ord) [facility], XR CHEST 1V PORTABLE, 06/03/2024 06/03/2024 Telephone [facility] [address] [place] [address] Kyle Rice MD 06/03/2024 Nurse Triage [facility] [address] [place] [address] Eddie Navarro MD Chest Pain; Difficulty Breathing 05/26/2024 Telephone [facility] [address] [place] [address] Brunilda Davalos RN, CCRN EP Procedure Scheduling 05/15/2024 10:00 AM SQL SERVER CONSULTANT Office Visit [facility] [place] [address] [place] [address] Laurel Díaz PA Follow Up (*Device Check 05/06*/discuss Walker Scientific advisory //pt states he feels well with no new cardiac sx.) 05/15/2024 Travel 05/12/2024 Telephone [facility] [address] [place] [address] Eddie Navarro MD Procedure 05/09/2024 4:30 PM SQL SERVER CONSULTANT Ancillary Procedure [facility] [address] [place] [address] 05/09/2024 2:20 PM SQL SERVER CONSULTANT Office Visit [facility] [address] [place] [address] Eddie Navarro MD Medicare ANNUAL (subsequent) Visit (86 years) 05/09/2024 Travel 05/06/2024 Travel from Last 3 Months Immunizations Immunization Administration Dates Next Due COVID-19 vaccine (Moderna 100mcg/0.5mL) STEVEN MICHEL 06/11/2020,05/14/2020 COVID-19 vaccine ([employer]iv[employer] 30mcg/0.3mL) 12YO+ BIVALENT PF, MDV 12/21/2021 Hepatitis [...] on file Legal Sex Male 5:25 AM SQL SERVER CONSULTANT Gender Identity Not on file Sexual Orientation Not on file 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 Not on file Not on fi le [...] Contact Info) Description 08/12/2024 Cardiac Device Check [facility] [phone] 08/12/2024 2:00 PM CDT Office Visit [facility] [address] [place] [address] Bob Birmingham MD [facility] [address] [place], [place] [address] 11/04/2024 1:00 PM CDT Cardiac Device Check [facility] [address] [place] [phone] Health Maintenance Due Date Last Done Comments [...] 12/05/2023, 11/20/2013 Medical Devices Implanted Type Area Global Coordinator Device Identifier Shelf Expiration Date Model / Serial / Lot Standard Pacemaker-11/24 Implanted: by Christiano Julien MD (Quantity not on file) Standard Pacemaker Walker Scientific [id number] / [id number] / Procedures Procedure Name Priority Date/Time Associated [...] EKG 12 LEAD Routine 05/15/2024 9:52 AM SQL SERVER CONSULTANT Fitting or adjustment of cardiac pacemaker Pacemaker XR HIP 1 VIEW W PELVIS RIGHT Routine 05/09/2024 4:33 PM SQL SERVER CONSULTANT Hip pain, right LIPID PANEL W REFLEX MEASURED LDL Routine 05/09/2024 4:16 PM SQL SERVER CONSULTANT Inferior ID (HC) Mixed hyperlipidemia BASIC METABOLIC PANEL Routine 05/09/2024 4:16 PM SQL SERVER CONSULTANT Essential hypertension TSH WITH REFLEX Routine 05/09/2024 4:16 PM SQL SERVER CONSULTANT Acquired hypothyroidism CBC WITH AUTO DIFFERENTIAL Routine 05/09/2024 4:16 PM SQL SERVER CONSULTANT Macrocytic anemia HEMOGLOBIN A1C Routine 05/09/2024 4:16 PM SQL SERVER CONSULTANT Hyperglycemia from Last 3 Months Results * EKG 12 LEAD (06/30/2024 4:35 PM CDT) Only the most recent of2 resultswithin the time period is included. Barb Guevara NP EKG ORD Final Re sult * EP PPM (06/24/2024 2:52 PM CDT) Anatomical Region Laterality Modality Other 06/24/2024 2:52 PM CDT Narrative Transcriptions Cordelia Piepr MD - 06/24/2024 5:51 PM CDT [facility] [place] [facility] [place] Electrophysiology Implant Report Name: BRYN BAIRD Event Date: 06/24/2024 [facility] ID #: [id number] Date: 1940 Gender: Male Age: 84 [facility] #: [id number] Procedure Performed By: CORDELIA PIPER [facility] Referring Physician: LAUREL DÍAZ Implant Procedure Type [...] side seatbelt underhis left arm. Consent & Ansley Protocol Ansley protocol was followed. TIME OUT conducted just [...] Pulse Generator Detail Implanted Status Pocket Location Global Coordinator Model Serial Number 12/08/2014 Explanted Left Pectoral Walker Scientific Accolade JACKY SERRATO [id number] 06/24/2024 Implanted Left Pectoral Walker Scientific Accolade MRI JACKY SERRATO [id number] Lead Detail Implanted Status Chamber Location Global Coordinator Model Serial Number 12/08/2014 Chronic Right Ventricle Septum Walker Scientific Dextrus [id number] 12/08/2014 Chronic Right Atrium Right Appendage Walker Scientific [id number] Measurement System Architect P/R Wave (mV) Threshold (V) Pulse Width [...] See Anesthesia Note Total Fluoro Time: 0 ACTIVATED SLUDGE OPERATOR Total Fluoro Dose: 0 mGy Contrast: No Contrast Given, 0 ml Staff Name Role Simone Ramesh Anesthesiologist Cordelia Piper Correction Lieutenant Ayana Duncan RN Nurse Imelda Watkins METAL CAN INSPECTOR Monitor Barb Guevara INDUSTRIAL ROOF PLUMBER Scrub Toya Benítez METAL CAN INSPECTOR Hook And Eye Machine Operator Medications Ordered and Administered Start Time Stop [...] status of Final Cordelia Piper MD Implanting Beaver Trapper [facility] [address] [facility] [address] [place] [address] (p) [phone](f) Laurel JUAREZ CV IMAGING Edit ed Result [...] MCV 104.0(H) 80.0 - 100.0 fL [facility] MCH 33.8(H) 27.0 - 33.0 [...] 193 140 - 400 Thousand/u L [facility] MPV 10.9 7.5 - 12.5 fL [facility] Blood BLOOD SPECIMEN / Unknown 06/09/2024 1:32 PM CDT 06/09/2024 1:33 PM CDT us Michelle Lehman MD HEMATOLOGY Final Res ult [facility] [address] [place] [address], [facility] [address] [place] [address] * BASIC METABOLIC PANEL (06/09/2024 1:32 PM CDT) Only the most recent of4 resultswithin the time period is included. [facility] GLUCOSE 93 65 - 99 mg/dL [facility] Comment: Fasting reference interval UREA NITROGEN (BUN) 20 7 - 25 mg/dL [facility] CREATININE 1.12 0.70 - 1.22 mg/dL [facility] EGFR 64 > OR = 60 mL/min/1. 73m2 [facility] BUN/CREATININE RATIO SEE NOTE: 6 [...] Lehman MD CHEMISTRY Final Res ult [facility] [address] [place] [address], [facility] [address] [place] [address] * SCAN-CARDIAC STRIP (06/05/2024 8:09 AM CDT) us Scanner OTHER Final Result * SCAN-CARDIAC STRIP (06/05/2024 1:50 AM CDT) us Scanner OTHER Final Result * (ABNORMAL) GLUCOSE METER (06/05/2024 12:48 AM CDT) [facility] Signature GLUCOSE METER 109(H) 65 - 100 mg/dL 06/05/2024 12:53 AM CDT [facility] Blood BLOOD SPECIMEN / Unknown 06/05/2024 12:48 AM CDT 06/05/2024 12:53 AM CDT us U Hospitalist Svc s CHEMISTRY Final Resu lt [facility] SENDOUT [place] [address] [address] [place] [address] * SCAN-CARDIAC STRIP (06/04/2024 10:12 PM CDT) us Scanner OTHER Final Result * NM CARDIAC MPI STRESS TEST (06/04/2024 1:59 PM CDT) Anatomical Region Laterality Modality HEART Nuclear Medicine 06/04/2024 11:2 3 AM CDT Narrative 06/04/2024 2:55 [place] [address] Main: [email or web address] Myocardial Perfusion Report Rest/Stress 1 Day Single Isotope Gated SPECT imaging with Regadenoson(Lexiscan) stress BRYN BAIRD Farzadecho ID: [id number] Age: 84 : 1940 Nuclear Tech: LAB Exam Date: 06/04/2024 11:23 Gender: M RN/Ex. Jute Bag Sewer: WINIFRED/EDER Height: 68.1 in BSA: 2.01 m [...] Hyperlipidemia Cardiac History: Coronary artery disease, Previous ID, Previous percutaneous revascularization, Pacemaker/ICD Presenting Symptoms: Typical [...] 0 Apical Lateral: 0 Apical Lateral: 0 Odd: 0 Odd: 0 Summed Stress Score: 0 Summed Rest [...] left ventricular wall motion. August Acosta MD [facility] Accredited Site (Electronically Signed) Final Date: 04 June 2024 14:55 ICD-10 Codes: R07.9 CC Providers: Eddie Navarro Procedure Note August Acosta MD - 06/04/2024 [place] [address] Main: [email or web address] Myocardial Perfusion Report Rest/Stress 1 Day Single Isotope Gated SPECT imaging withRegadenoson(Lexiscan) stress BRYN BAIRD Kolby ID: [id number] Age: 84 : 1940 Nuclear Tech: LAB Exam Date: 06/04/2024 11:23 Gender: M RN/Ex. Jute Bag Sewer: WINIFRED/EDER Height: 68.1 in BSA: 2.01 m [...] Hyperlipidemia Cardiac History: Coronary artery disease, Previous ID, Previouspercutaneous revascularization, Pacemaker/ICD Presenting Symptoms: Typical chest [...] 0 Apical Lateral: 0 Apical Lateral: 0 Odd: 0 Odd: 0 Summed Stress Score: 0 Summed Rest [...] left ventricular wall motion. August Acosta MD [facility] Accredited Site (Electronically Signed) Final Date: 04 [...] 6-15 ng/L ng/L 06/04/2024 11:56 AM CDT [facility] Blood BLOOD SPECIMEN / Unknown Venipuncture / Unknown 06/04/2024 11:28 AM CDT 06/04/2024 11:34 AM CDT us Nancy JUAREZ CHEMISTRY Final Resul t [facility] SENDOUT [place] [address] [address] [place] [address] * ECHO TTE COMPLETE WO CONTRAST (06/04/2024 9:21 AM CDT) Pathologist [facility] EJECTION FRACTION 55-60% PROSOLV Anatomical Region Laterality Modality Ultrasound 06/04/2024 8:48 AM CDT Narrative 06/04/2024 10:28 [place] [address] Main: [email or web address] Echo Report BRYN BAIRD ID: [id number] Age: 84 : 1940 Ordering Provider: NANCY ETRRY Exam Date: 06/04/2024 08:48 Gender: M Rotary Slicing Machine Operator: MINDY Height: 68 in BSA: 2.01 m [...] ZScore: -1.75 Echo Burris MD (Electronically Signed) [facility] Accredited Site Final Date: 04 June 2024 10:27 ICD-10 Codes: 786.9 Procedure Note Echo Burris MD - 06/04/2024 [place] [address] Main: [email or web address] Echo Report BAIRD, BRYN Jarrett ID: [id number] Age: 84 : 1940 Ordering Provider:NANCY TERRY Exam Date: 06/04/2024 08:48 Gender: M Rotary Slicing Machine Operator: MINDY Height: 68 in BSA: 2.01 m [...] ZScore: -1.75 Echo Burris MD (Electronically Signed) [facility] Accredited Site Final Date: 04 June 2024 10:27 ICD-10 Codes: 786.9 us Nancy JUAREZ ECHO ORD Final Resul t * SCAN-CARDIAC STRIP (06/04/2024 7:46 AM CDT) us Scanner OTHER Final Result * (ABNORMAL) TROPONIN T (HS) ACUTE W/2HR REFLEX (06/04/2024 7:22 AM CDT) TROPONIN T HS 37(H) 6-15 ng/L ng/L 06/04/2024 7:56 AM CDT [facility] Blood BLOOD SPECIMEN / Unknown Venipuncture / Unknown 06/04/2024 7:22 AM CDT 06/04/2024 7:25 AM CDT Narrative [facility] - 06/04/2024 7:56 AM CDT [...] population. Nancy JUAREZ CHEMISTRY Final Resul t [facility] S[address]OUT [place] [address] [address] [place] [address] * (ABNORMAL) PRO-BNP (06/04/2024 7:22 AM CDT) [facility] Signature PRO-BNP 722(H) <450 pg/mL 06/04/2024 7:59 AM CDT [facility] Blood BLOOD SPECIMEN / Unknown Venipuncture / Unknown 06/04/2024 7:22 AM CDT 06/04/2024 7:25 AM CDT Narrative [facility] - 06/04/2024 7:59 AM CDT [...] OUTS Final Resul t Performing Organization Address [facility]/ZIP Co de Phone Number [facility] SENDOUT [place] [address] [address] [place] [address] * MAGNESIUM (06/04/2024 7:22 AM CDT) [facility] MAGNESIUM 2.0 1.6 - 2.4 mg/dL 06/04/2024 7:56 AM CDT [facility] Blood BLOOD SPECIMEN / Unknown Venipuncture / Unknown 06/04/2024 7:22 AM CDT 06/04/2024 7:25 AM CDT us Nancy JUAREZ CHEMISTRY Final Resul t Performing Organization Address [facility]/ZIP Co de Phone Number [facility] SENDOUT [place] [address] [address] [place] [address] * SCAN-CARDIAC STRIP (06/04/2024 7:02 AM CDT) [...] VIEW W PELVIS RIGHT (05/09/2024 4:33 PM SQL SERVER CONSULTANT) Anatomical Region Laterality Modality HIPS, HIPR, Pelvis Computed Radi ography 05/12/2024 8:03 AM SQL SERVER CONSULTANT Narrative 05/12/2024 8:03 AM SQL SERVER CONSULTANT For Patients: As a result of the [...] * (ABNORMAL) HEMOGLOBIN A1C (05/09/2024 4:16 PM SQL SERVER CONSULTANT) HEMOGLOBIN A1C 5.7(H) <5.7 % of total Hgb [facility] Comment: For someone without [...] BLOOD SPECIMEN / Unknown 05/09/2024 4:16 PM SQL SERVER CONSULTANT 05/09/2024 4:16 PM SQL SERVER CONSULTANT Narrative [facility] - 05/10/2024 5:09 AM SQL SERVER CONSULTANT FASTING:NO FASTING: NO Eddie Navarro MD CHEMISTRY Final Resu lt [facility] [address] [place] [address], [facility] [address] [place] [address] * TSH WITH REFLEX (05/09/2024 4:16 PM SQL SERVER CONSULTANT) TSH W/REFLEX TO FT4 2.10 0.40 - 4.50 mIU/L [facility] Blood BLOOD SPECIMEN / Unknown 05/09/2024 4:16 PM SQL SERVER CONSULTANT 05/09/2024 4:16 PM SQL SERVER CONSULTANT Narrative [facility] - 05/10/2024 4:31 AM SQL SERVER CONSULTANT FASTING:NO FASTING: NO us Eddie Navarro MD CHEMISTRY Final Resu lt [facility] [address] [place] [address], [facility] [address] [place] [address] * (ABNORMAL) LIPID PANEL W REFLEX MEASURED LDL (05/09/2024 4:16 PM SQL SERVER CONSULTANT) Pathologist [facility] CHOLESTEROL, TOTAL 81 <200 mg/dL [facility] [...] factors. LDL-C is now calculated using the Maonj calculation, which is a validated novel method providing better accuracy than the Friedewald equation in the estimation of LDL-C. Khanh SS et al. CINTHIA. 2013;310(19): 5888-6863 (http://education.[employer] Mobile/faq/XZP436) CHOL/HDLC RATIO 2.6 <5.0 (calc) [facility] NON HDL CHOLESTEROL 50 <130 mg/dL (calc) [facility] Comment: For patients with diabetes plus 1 major ASCVD risk factor, treating to a non-HDL-C goal of <100 mg/dL (LDL-C of <70 mg/dL) is considered a therapeutic option. Blood BLOOD SPECIMEN / Unknown 05/09/2024 4:16 PM SQL SERVER CONSULTANT 05/09/2024 4:16 PM SQL SERVER CONSULTANT Narrative [facility] - 05/10/2024 6:16 AM SQL SERVER CONSULTANT FASTING:NO FASTING: NO Eddie Navarro MD CHEMISTRY Final Resu lt [facility] [address] [place] [address], [facility] [address] [place] [address] * (ABNORMAL) CBC AND DIFFERENTIAL (05/09/2024 4:16 PM SQL SERVER CONSULTANT) Pathologist [facility] WHITE BLOOD CELL COUNT 6.7 3.8 - 10.8 Thousand/u L [facility] RED BLOOD CELL COUNT 3.65(L) [...] 206 140 - 400 Thousand/u L [facility] MPV 10.7 7.5 - 12.5 [...] BLOOD SPECIMEN / Unknown 05/09/2024 4:16 PM SQL SERVER CONSULTANT 05/09/2024 4:16 PM SQL SERVER CONSULTANT Narrative [facility] - 05/10/2024 4:13 AM SQL SERVER CONSULTANT FASTING:NO FASTING: NO us Eddie Navarro MD HEMATOLOGY Final Resu lt [facility] [address] [place] [address], [facility] [address] [place] [address] from Last 3 Months Insurance MEDICARE PART B HB ONLY MR [place] MEDICARE PART B HB ONLY MEDICARE PART A HB ONLY MEDICARE PART B HB ONLY Member Subscriber Plan / Payer (Ef fective 2003-Present) Name:Bryn Baird Asher Member ID:[id number] Relation to Subscriber:Self Name:Bryn Baird Subscriber ID:[id number] Payer ID:Not on file Group ID:Not on file Type:Not on file Address: ATTN: CLAIMS [address] [place], [place] [address] [place] [address] MEDICARE PART A HB ONLY Member Subscriber Plan / Payer (Ef fective 2003-Present) Name:Bryn Baird Asher Member ID:[id number] Relation to Subscriber:Self Name:Bryn Baird Asher Subscriber ID:[id number] Payer ID:Not on file Group ID:Not on file Type:Not on file Address: ATTN: CLAIMS [address] [place], [place] [address] [place] [address] MEDICARE PB ONLY Member Subscriber Plan / Payer (Ef fective 2018-Present) Name:Baird Bryn Asher Member ID:[id number] Relation to Subscriber:Self Name:Bryn Baird Asher Subscriber ID:[id number] Payer ID:Not on file Group ID:Not on file Type:Not on file Address: ATTN: CLAIMS [address] [place], [place] [address] [place] [address] [place]OSS [id number] Advance Directives Documents on File Type Date Recorded Patient Herb Digger Expl anation Healthcare Directive 06/17/2005 [facility], [facility], 06/17/05 * DNR (Latest Code Status [...] 10:46 PM 03/22/2013 3:06 PM Care Teams Siebel Solution Architect Relationship Specialty Start Date End Date Eddie Navarro MD [address] [place] [address] PCP - General Family Practice 04/17/17 Cordelia Delgado MD [address] [place] [address] [place] [address] Surgery - Ophthalmology 05/05/22 Bob Birmingham MD [address] [place] [address] Cardiovascular Disease 05/05/22 Joseph Jones Ophthalmology 05/05/22
== END 2024-07-15 16:42 | disposition home or self-care (01) ==
PROVIDERS: Emergency Provider Emergency Medicine; PCP Family Medicine
DX: S63.284A Dislocation of proximal interphalangeal joint of right ring finger, initial encounter (principal); S60.412A Abrasion of right middle finger, initial encounter; V19.88XA Pedal cyclist (driver) (passenger) injured in other specified transport accidents, initial encounter
CPT/HCPCS: 26770; 73140; 99282; 99284

== ENCOUNTER 2024-08-21 13:30 | Outpatient (RCR) | payer MEDICARE, OTHER, SELFPAY | END 2024-08-22 07:06 | disposition home or self-care (01) | PROVIDERS: PCP Family Medicine; Visit Provider Orthopaedic Surgery Sports Medicine | DX: S63.289A Dislocation of proximal interphalangeal joint of unspecified finger, initial encounter (principal); Z51.89 Encounter for other specified aftercare | CPT/HCPCS: 97035; 97110; 97165; X5282 ==